=== PATIENT | male | born 1970 | race Caucasian/White ===

== ENCOUNTER 2018-04-12 17:06 | Emergency (ER) | payer MEDICARE, OTHER ==
[~2018-04-12] VITALS: Ht 170.2 cm; Wt 109.1 kg
[2018-04-12 17:24] LABS: GLUCOSE,POINT OF CARE 103 MG/DL (70-110)
[2018-04-12 18:15] LABS: BASOPHILS % (AUTO) 0.5 % (0.0-2.0); EOSINOPHILS % (AUTO) 0.7 % (1.0-6.0); HEMATOCRIT 49.3 % (41-53); LYMPHOCYTES # (AUTO) 2.7 K/uL (1.0-4.8); LYMPHOCYTES % (AUTO) 26.5 % (22.0-44.0); MEAN CORPUSCULAR HEMOGLOBIN 28.6 pg (26.0-34.0); MEAN CORPUSCULAR HGB CONC 34.4 G/dL (31.0-37.0); MEAN CORPUSCULAR VOLUME 83 fL (80-100); MONOCYTES # (AUTO) 0.8 K/uL (0.1-1.0); MONOCYTES % (AUTO) 7.3 % (2.0-9.0); NEUTROPHILS # (AUTO) 6.7 K/uL (1.8-7.7); PLATELET COUNT (AUTO) 251 K/uL (150-450); RED BLOOD CELL COUNT(AUTO) 5.92 MIL/uL (4.50-5.90); RED CELL DISTRIBUTION WIDTH 14.1 % (11.5-14.5)
[2018-04-12 18:21] LABS: ANION GAP 12 mmol/L (8-16); CALCIUM, TOTAL 9.5 mg/dL (8.8-10.5); CARBON DIOXIDE 27 mmol/L (22-29); CHLORIDE 104 mmol/L (98-107); CREATININE 1.03 mg/dL (0.60-1.30); GLOMERULAR FILTR. RATE CALC > 60 mL/min (>60); GLUCOSE,RANDOM 106 mg/dL (70-110); POTASSIUM 3.7 mmol/L (3.5-5.1); SODIUM SERUM 143 mmol/L (136-145); UREA NITROGEN, BLOOD 10 mg/dL (7-18)
[2018-04-12 18:26] LABS: ALANINE AMINOTRANSFERASE 107 U/L (12-78); ALBUMIN 3.8 g/dL (3.4-5.0); ALKALINE PHOSPHATASE 103 U/L (46-116); ASPARTATE AMINOTRANSFERASE 47 U/L (15-37); BILIRUBIN,TOTAL 0.4 mg/dL (0.1-1.0); LIPASE 238 U/L (73-393); TOTAL PROTEIN, SERUM 7.8 g/dL (6.4-8.2)
[2018-04-12] MEDS ORDERED: SODIUM CHLORIDE 0.9% 1,000 ML IV ONE (19:00)
[2018-04-12] MEDS ORDERED: FAMOTIDINE 10 MG/ML 2 ML VIAL IVP ONE (19:15)
[2018-04-12] MEDS ORDERED: ONDANSETRON HCL 4 MG/2 ML VIAL IVP ONE (19:15)
[2018-04-12 20:28] LABS: APPEARANCE,URINE CLOUDY (CLEAR); GLUCOSE, URINE (UA) NEGATIVE (NEGATIVE); KETONES,URINE TRACE mg/dL (NEGATIVE); LEUKOCYTE ESTERASE ,URINE NEGATIVE (NEGATIVE); NITRATE,URINE NEGATIVE (NEGATIVE); OCCULT BLOOD,URINE NEGATIVE (NEGATIVE); PH,URINE 5.5 (5.0-8.0); PROTEIN,URINE SEE CONFIRM (NEGATIVE)
[2018-04-12 20:33] LABS: BILIRUBIN,URINE PRELIM. POSITIVE (NEGATIVE)
[2018-04-12 20:43] LABS: AMPHET/METH SCREEN,URINE NEGATIVE (NEGATIVE); BARBITURATE SCREEN, URINE NEGATIVE (NEGATIVE); BENZODIAZEPINES SCREEN,URINE NEGATIVE (NEGATIVE); CANNABINOID SCREEN,URINE NEGATIVE (NEGATIVE); COCAINE SCREEN,URINE NEGATIVE (NEGATIVE); METHADONE SCREEN, URINE NEGATIVE (NEGATIVE); OPIATE SCREEN,URINE NEGATIVE (NEGATIVE)
[2018-04-12 20:44] LABS: PHENCYCLIDINE SCREEN,URINE NEGATIVE (NEGATIVE); SULFOSALICYLIC ACID,URINE 1+ (Negative)
[2018-04-12 20:54] LABS: RBC,URINE 0-2 /HPF (0-2)
[2018-04-12 20:55] LABS: BACTERIA,URINE Few /HPF (None Seen); MUCUS,URINE Many LPF (None Seen); SQUAMOUS EPITHELIAL CELL,UR Few /LPF (None Seen)
[2018-04-12 21:00] VITALS: BP 121/75
[2018-04-12] MEDS ORDERED: LOPERAMIDE HCL 2 MG CAPSULE PO ONE (21:15)
== END 2018-04-12 21:32 | disposition home or self-care (01) ==
LOC: EMS 17:08
DX: R10.13 Epigastric pain (principal); R11.2 Nausea with vomiting, unspecified; R19.7 Diarrhea, unspecified; E11.9 Type 2 diabetes mellitus without complications; F20.9 Schizophrenia, unspecified; Z88.0 Allergy status to penicillin
CPT/HCPCS: 36415; 80053; 80307; 81001; 82962; 83690; 85025; 93005; 96361; 96374; 96375; 99285; G0480; J2405; J3490; J7030

== ENCOUNTER 2018-04-22 20:19 | Inpatient (IN) | payer MEDICARE, MEDICAID ==
[~2018-04-22] VITALS: Ht 172.7 cm; Wt 92.7 kg
[2018-04-22] MEDS ORDERED: ANTIPSYCHOTIC PO (20:44)
[2018-04-22 21:23] LABS: ANION GAP 13 mmol/L (8-16); CALCIUM, TOTAL 9.2 mg/dL (8.8-10.5); CARBON DIOXIDE 25 mmol/L (22-29); CHLORIDE 102 mmol/L (98-107); CREATININE 0.99 mg/dL (0.60-1.30); GLOMERULAR FILTR. RATE CALC > 60 mL/min (>60); GLUCOSE,RANDOM 94 mg/dL (70-110); SODIUM SERUM 140 mmol/L (136-145); UREA NITROGEN, BLOOD 13 mg/dL (7-18)
[2018-04-22 21:29] LABS: ALANINE AMINOTRANSFERASE 96 U/L (12-78); ALBUMIN 3.6 g/dL (3.4-5.0); ALKALINE PHOSPHATASE 100 U/L (46-116); ASPARTATE AMINOTRANSFERASE 41 U/L (15-37); BILIRUBIN,TOTAL 1.2 mg/dL (0.1-1.0); TOTAL PROTEIN, SERUM 7.6 g/dL (6.4-8.2)
[2018-04-22 21:39] LABS: BASOPHILS % (AUTO) 0.4 % (0.0-2.0); EOSINOPHILS % (AUTO) 0.6 % (1.0-6.0); HEMATOCRIT 45.9 % (41-53); HEMOGLOBIN 15.5 g/dL (13.5-17.5); LYMPHOCYTES # (AUTO) 1.8 K/uL (1.0-4.8); LYMPHOCYTES % (AUTO) 15.1 % (22.0-44.0); MEAN CORPUSCULAR HEMOGLOBIN 28.7 pg (26.0-34.0); MEAN CORPUSCULAR HGB CONC 33.7 G/dL (31.0-37.0); MEAN CORPUSCULAR VOLUME 85 fL (80-100); MONOCYTES % (AUTO) 8.1 % (2.0-9.0); NEUTROPHILS # (AUTO) 9.3 K/uL (1.8-7.7); NEUTROPHILS % (AUTO) 75.8 % (40.0-70.0); PLATELET COUNT (AUTO) 258 K/uL (150-450); RED CELL DISTRIBUTION WIDTH 14.6 % (11.5-14.5)
[2018-04-23] MEDS: LORazepam 2 MG TABLET PO PRN ×2 (03:20→09:54)
[2018-04-23] MEDS: HALOPERIDOL 5 MG TABLET PO PRN ×2 (03:21→09:54)
[2018-04-23 04:00] VITALS: BP 128/91
[2018-04-23] MEDS ORDERED: PNEUMOCOCCAL VACCINE POLYVALENT 0.5 ML VIAL [PPSV23] IM ONE (04:00)
[2018-04-23] MEDS ORDERED: CloNIDine HCL 0.1 MG TABLET PO PRN (06:30)
[2018-04-23] MEDS ORDERED: DOCUSATE SODIUM 100 MG CAPSULE PO PRN (06:30)
[2018-04-23] MEDS ORDERED: NICOTINE 14 MG/24 HOUR PATCH TD PRN (06:30)
[2018-04-23] MEDS ORDERED: ALBUTEROL SULFATE HFA 90 MCG/PUFF 8 GM INHALER IH PRN (06:30)
[2018-04-23] MEDS ORDERED: PETROLATUM,WHITE 71 GM JELLY TP PRN (06:30)
[2018-04-23] MEDS ORDERED: MAGNESIUM HYDROXIDE SUSPENSION 30 ML UDCUP PO PRN (06:30)
[2018-04-23] MEDS ORDERED: MAG HYDROX/AL HYDROX/SIMETH ES 30 ML SUSPENSION UDCUP PO PRN (06:30)
[2018-04-23] MEDS ORDERED: ONDANSETRON HCL 4 MG TABLET PO PRN (06:30)
[2018-04-23] MEDS ORDERED: GuaiFENesin/D-METHORPHAN [SUGAR-FREE] 200-20MG/10 ML SYRUP UDCUP PO PRN (06:30)
[2018-04-23 08:00] VITALS: BP 144/93
[2018-04-23] MEDS: ACETAMINOPHEN 325 MG TABLET PO PRN (16:42)
[2018-04-23 16:43] VITALS: BP 130/89
[2018-04-23] MEDS ORDERED: PALIPERIDONE 6 MG ER TABLET PO SCH (21:00)
[2018-04-24 06:52] LABS: ALANINE AMINOTRANSFERASE 65 U/L (12-78); ALKALINE PHOSPHATASE 81 U/L (46-116); ANION GAP 6 mmol/L (8-16); ASPARTATE AMINOTRANSFERASE 25 U/L (15-37); BILIRUBIN,TOTAL 0.5 mg/dL (0.1-1.0); CALCIUM, TOTAL 8.7 mg/dL (8.8-10.5); CARBON DIOXIDE 28 mmol/L (22-29); CHLORIDE 108 mmol/L (98-107); CHOL/HDL RATIO 4.5 (4.2-7.3); CHOLESTEROL 159 mg/dL (131-200); CREATININE 0.78 mg/dL (0.60-1.30); GLOMERULAR FILTR. RATE CALC > 60 mL/min (>60); GLUCOSE,RANDOM 126 mg/dL (70-110); HDL CHOLESTEROL 35 mg/dL (40-60); LDL CHOL (CALC.) 100 mg/dL (0-130); POTASSIUM 3.6 mmol/L (3.5-5.1); SODIUM SERUM 142 mmol/L (136-145); TOTAL PROTEIN, SERUM 6.5 g/dL (6.4-8.2); TRIGLYCERIDES 118 mg/dL (15-150); UREA NITROGEN, BLOOD 13 mg/dL (7-18)
[2018-04-24 08:09] LABS: HEMOGLOBIN A1C 5.5 % (4.5-6.2)
[2018-04-24 09:41] VITALS: BP 106/70
[2018-04-24 17:15] LABS: BASOPHILS % (AUTO) 0.4 % (0.0-2.0); EOSINOPHILS % (AUTO) 1.1 % (1.0-6.0); HEMATOCRIT 43.5 % (41-53); HEMOGLOBIN 14.7 g/dL (13.5-17.5); LYMPHOCYTES # (AUTO) 2.2 K/uL (1.0-4.8); LYMPHOCYTES % (AUTO) 21.6 % (22.0-44.0); MEAN CORPUSCULAR HEMOGLOBIN 29.1 pg (26.0-34.0); MEAN CORPUSCULAR HGB CONC 33.8 G/dL (31.0-37.0); MEAN CORPUSCULAR VOLUME 86 fL (80-100); MONOCYTES # (AUTO) 0.8 K/uL (0.1-1.0); MONOCYTES % (AUTO) 7.5 % (2.0-9.0); NEUTROPHILS # (AUTO) 7.2 K/uL (1.8-7.7); NEUTROPHILS % (AUTO) 69.4 % (40.0-70.0); PLATELET COUNT (AUTO) 231 K/uL (150-450); RED BLOOD CELL COUNT(AUTO) 5.04 MIL/uL (4.50-5.90); RED CELL DISTRIBUTION WIDTH 14.7 % (11.5-14.5)
[2018-04-24 17:45] LABS: APPEARANCE,URINE CLEAR (CLEAR); BILIRUBIN,URINE NEGATIVE (NEGATIVE); GLUCOSE, URINE (UA) NEGATIVE (NEGATIVE); KETONES,URINE NEGATIVE (NEGATIVE); LEUKOCYTE ESTERASE ,URINE NEGATIVE (NEGATIVE); NITRATE,URINE NEGATIVE (NEGATIVE); OCCULT BLOOD,URINE TRACE (NEGATIVE); PH,URINE 6.5 (5.0-8.0); PROTEIN,URINE NEGATIVE (NEGATIVE); UROBILINOGEN,URINE 0.2 mg/dL (<=1.0)
[2018-04-24 17:50] LABS: AMPHET/METH SCREEN,URINE NEGATIVE (NEGATIVE); BARBITURATE SCREEN, URINE NEGATIVE (NEGATIVE); BENZODIAZEPINES SCREEN,URINE NEGATIVE (NEGATIVE); CANNABINOID SCREEN,URINE NEGATIVE (NEGATIVE); COCAINE SCREEN,URINE NEGATIVE (NEGATIVE); METHADONE SCREEN, URINE NEGATIVE (NEGATIVE); OPIATE SCREEN,URINE NEGATIVE (NEGATIVE)
[2018-04-24 17:54] LABS: PHENCYCLIDINE SCREEN,URINE NEGATIVE (NEGATIVE)
[2018-04-24 18:12] LABS: BACTERIA,URINE None Seen /HPF (None Seen); RBC,URINE 0-2 /HPF (0-2); SQUAMOUS EPITHELIAL CELL,UR Rare /LPF (None Seen); WBC,URINE None Seen /HPF (0-5)
[2018-04-24 18:18] VITALS: BP 120/79
[2018-04-24] MEDS ORDERED: PALIPERIDONE 6 MG ER TABLET PO SCH (21:00)
[2018-04-25 00:25] VITALS: BP 113/73
[2018-04-25] MEDS: LORazepam 2 MG TABLET PO PRN ×2 (00:33→08:32)
[2018-04-25] MEDS: ZOLPIDEM TARTRATE 10 MG TABLET PO PRN (00:33)
[2018-04-25 08:19] VITALS: BP 125/91
[2018-04-25] MEDS: HALOPERIDOL 5 MG TABLET PO PRN (11:34)
[2018-04-25 18:38] VITALS: BP 151/88
[2018-04-25] MEDS: PALIPERIDONE 6 MG ER TABLET PO SCH (20:24)
[2018-04-25] MEDS ORDERED: PALIPERIDONE 3 MG ER TABLET PO SCH (21:00)
[2018-04-26] MEDS: LOPERAMIDE HCL 2 MG CAPSULE PO PRN (08:31)
[2018-04-26] MEDS: LORazepam 2 MG TABLET PO PRN (08:31)
[2018-04-26] MEDS: ACETAMINOPHEN 325 MG TABLET PO PRN (12:49)
[2018-04-26 17:23] VITALS: BP 141/82
[2018-04-26] MEDS: PALIPERIDONE 6 MG ER TABLET PO SCH (19:50)
[2018-04-27 08:51] VITALS: BP 134/79
[2018-04-27] MEDS: LORazepam 2 MG TABLET PO PRN (08:53)
[2018-04-27] MEDS: HALOPERIDOL 5 MG TABLET PO PRN (08:53)
[2018-04-27] MEDS: IBUPROFEN 400 MG TABLET PO PRN (08:54)
[2018-04-27] MEDS: LOPERAMIDE HCL 2 MG CAPSULE PO PRN (08:54)
[2018-04-27] MEDS: ACETAMINOPHEN 325 MG TABLET PO PRN (08:54)
[2018-04-27 19:19] VITALS: BP 107/68
[2018-04-27] MEDS: PALIPERIDONE 6 MG ER TABLET PO SCH (20:00)
[2018-04-28 00:50] VITALS: BP 135/75
[2018-04-28] MEDS: LORazepam 2 MG TABLET PO PRN (00:55)
[2018-04-28] MEDS: ZOLPIDEM TARTRATE 10 MG TABLET PO PRN (00:55)
[2018-04-28 08:59] VITALS: BP 139/91
[2018-04-28] MEDS: IBUPROFEN 400 MG TABLET PO PRN (11:12)
[2018-04-28 17:00] VITALS: BP 132/85
[2018-04-28] MEDS: PALIPERIDONE 6 MG ER TABLET PO SCH (20:16)
[2018-04-29 04:05] VITALS: BP 101/74
[2018-04-29] MEDS: LORazepam 2 MG TABLET PO PRN (04:11)
[2018-04-29] MEDS: HALOPERIDOL 5 MG TABLET PO PRN (04:11)
[2018-04-29 09:14] VITALS: BP 115/85
[2018-04-29 17:00] VITALS: BP 149/80
[2018-04-29] MEDS: PALIPERIDONE 6 MG ER TABLET PO SCH (20:49)
[2018-04-30 08:25] VITALS: BP 122/79
[2018-04-30 16:01] VITALS: BP 133/68
[2018-04-30] MEDS: ACETAMINOPHEN 325 MG TABLET PO PRN (17:22)
[2018-04-30] MEDS: PALIPERIDONE 6 MG ER TABLET PO SCH (20:23)
[2018-05-01 02:56] VITALS: BP 116/96
[2018-05-01] MEDS: HALOPERIDOL 5 MG TABLET PO PRN ×2 (02:56→08:12)
[2018-05-01] MEDS: IBUPROFEN 400 MG TABLET PO PRN (02:57)
[2018-05-01 08:00] VITALS: BP 112/64
[2018-05-01 17:12] VITALS: BP 132/83
[2018-05-01] MEDS: PALIPERIDONE 6 MG ER TABLET PO SCH (20:21)
[2018-05-02 08:02] VITALS: BP 140/91
[2018-05-02] MEDS: HALOPERIDOL 5 MG TABLET PO PRN (08:05)
[2018-05-02 17:00] VITALS: BP 119/72
[2018-05-02] MEDS: PALIPERIDONE 6 MG ER TABLET PO SCH (20:39)
[2018-05-02] MEDS: ZOLPIDEM TARTRATE 10 MG TABLET PO PRN (22:24)
[2018-05-03 00:03] VITALS: BP 123/89
[2018-05-03] MEDS: LORazepam 2 MG TABLET PO PRN (00:06)
[2018-05-03] MEDS: HALOPERIDOL 5 MG TABLET PO PRN ×2 (03:01→22:02)
[2018-05-03 08:05] VITALS: BP 142/95
[2018-05-03] MEDS: DIVALPROEX SODIUM 500 MG ER TABLET PO SCH ×2 (08:16→16:31)
[2018-05-03 17:00] VITALS: BP 116/84
[2018-05-03] MEDS: PALIPERIDONE 6 MG ER TABLET PO SCH (23:01)
[2018-05-04] MEDS: ACETAMINOPHEN 325 MG TABLET PO PRN (00:04)
[2018-05-04 00:26] VITALS: BP 135/92
[2018-05-04] MEDS: HALOPERIDOL 5 MG TABLET PO PRN ×2 (03:08→08:44)
[2018-05-04 08:07] VITALS: BP 160/101
[2018-05-04] MEDS: DIVALPROEX SODIUM 500 MG ER TABLET PO SCH ×2 (08:44→16:56)
[2018-05-04 16:29] VITALS: BP 145/97
[2018-05-04] MEDS: PALIPERIDONE 6 MG ER TABLET PO SCH (21:00)
[2018-05-05 01:15] VITALS: BP 147/90
[2018-05-05] MEDS: DIVALPROEX SODIUM 500 MG ER TABLET PO SCH ×3 (09:00→16:14)
[2018-05-05] MEDS: HALOPERIDOL 5 MG TABLET PO PRN (13:43)
[2018-05-05 16:21] VITALS: BP 131/89
[2018-05-05] MEDS: PALIPERIDONE 6 MG ER TABLET PO SCH (20:01)
[2018-05-06] MEDS: HALOPERIDOL 5 MG TABLET PO PRN ×2 (02:44→12:40)
[2018-05-06 02:55] VITALS: BP 122/82
[2018-05-06] MEDS: IBUPROFEN 400 MG TABLET PO PRN ×2 (02:58→12:41)
[2018-05-06 05:36] LABS: BASOPHILS % (AUTO) 0.3 % (0.0-2.0); EOSINOPHILS % (AUTO) 0.8 % (1.0-6.0); HEMATOCRIT 43.5 % (41-53); HEMOGLOBIN 14.5 g/dL (13.5-17.5); LYMPHOCYTES % (AUTO) 29.1 % (22.0-44.0); MEAN CORPUSCULAR HEMOGLOBIN 28.9 pg (26.0-34.0); MEAN CORPUSCULAR HGB CONC 33.4 G/dL (31.0-37.0); MEAN CORPUSCULAR VOLUME 87 fL (80-100); MONOCYTES % (AUTO) 9.6 % (2.0-9.0); NEUTROPHILS # (AUTO) 6.1 K/uL (1.8-7.7); NEUTROPHILS % (AUTO) 60.2 % (40.0-70.0); PLATELET COUNT (AUTO) 258 K/uL (150-450); RED BLOOD CELL COUNT(AUTO) 5.02 MIL/uL (4.50-5.90); RED CELL DISTRIBUTION WIDTH 14.8 % (11.5-14.5)
[2018-05-06] MEDS: DIVALPROEX SODIUM 500 MG ER TABLET PO SCH ×2 (08:33→16:20)
[2018-05-06 12:40] VITALS: BP 109/60
[2018-05-06 19:23] VITALS: BP 110/74
[2018-05-06] MEDS: PALIPERIDONE 6 MG ER TABLET PO SCH (20:04)
[2018-05-07] MEDS ORDERED: PALIPERIDONE PALMITATE 234 MG/1.5 ML SYRINGE IM ONE (09:00)
[2018-05-07] MEDS: DIVALPROEX SODIUM 500 MG ER TABLET PO SCH ×2 (09:00→16:07)
[2018-05-07 09:13] VITALS: BP 116/82
[2018-05-07] MEDS: PALIPERIDONE 6 MG ER TABLET PO SCH (20:21)
[2018-05-08] MEDS: DIVALPROEX SODIUM 500 MG ER TABLET PO SCH ×2 (08:29→16:53)
[2018-05-08 09:19] VITALS: BP_SYST 128; BP_SYST 200; BP_DIAS 80; BP_DIAS 89
[2018-05-08 17:00] VITALS: BP 122/80
[2018-05-08] MEDS: PALIPERIDONE 6 MG ER TABLET PO SCH (20:14)
[2018-05-09 03:28] VITALS: BP 114/85
[2018-05-09] MEDS: DIVALPROEX SODIUM 500 MG ER TABLET PO SCH ×2 (08:22→16:28)
[2018-05-09 09:35] VITALS: BP 133/78
[2018-05-09] MEDS: PALIPERIDONE 6 MG ER TABLET PO SCH (20:12)
[2018-05-09 22:09] VITALS: BP 129/80
[2018-05-10] MEDS: DIVALPROEX SODIUM 500 MG ER TABLET PO SCH (08:41)
[2018-05-10 09:31] VITALS: BP 142/92
[2018-05-10] MEDS ORDERED: DIVA500T52 PO (10:32)
[2018-05-10] MEDS ORDERED: PALI6 PO (10:33)
== END 2018-05-10 14:40 | disposition home or self-care (01) | DRG 885 ==
LOC: EMS 20:20 → 3EX 04-23 02:05
PROVIDERS: ADMIT Psychiatry & Neurology Psychiatry; ATTEND Psychiatry & Neurology Psychiatry
DX: F20.0 Paranoid schizophrenia (principal); R45.851 Suicidal ideations; K59.00 Constipation, unspecified; E11.9 Type 2 diabetes mellitus without complications; R00.0 Tachycardia, unspecified; H92.09 Otalgia, unspecified ear; D72.829 Elevated white blood cell count, unspecified; Z91.5 Personal history of self-harm; Z91.19 Patient's noncompliance with other medical treatment and regimen; Z88.0 Allergy status to penicillin
CPT/HCPCS: 70450; 70486; 80307; 83036; 84443; G0378; G0480; Q0162

== ENCOUNTER 2018-12-18 09:08 | Emergency (ER) | payer MEDICARE, OTHER ==
[~2018-12-18] VITALS: Ht 182.9 cm; Wt 109.1 kg
[~2018-12-18 09:08] MED LIST: AMLO-511 PO; BENZ1TAB10 PO; CITA10TA68 PO; CLON1 PO; CLOZ100T31 PO; DIVA500T52 PO; DOCU250C91 PO; FLUP5 PO; GABA-531 PO; GEMF600T5 PO; HYDR25TA PO; OMEP20CA4 PO; OXYB5 PO; PALI6 PO; PROM6.2522 PO; RISPC50 IM; TRAM50TA4 PO; TRAZ-220 PO
[2018-12-18 09:34] LABS: GLUCOSE,POINT OF CARE 138 MG/DL (70-110)
[2018-12-18 09:59] LABS: BASOPHILS % (AUTO) 0.4 % (0.0-2.0); EOSINOPHILS % (AUTO) 0.1 % (1.0-6.0); HEMATOCRIT 42.3 % (41-53); HEMOGLOBIN 14.1 g/dL (13.5-17.5); LYMPHOCYTES # (AUTO) 1.7 K/uL (1.0-4.8); MEAN CORPUSCULAR HEMOGLOBIN 28.9 pg (26.0-34.0); MEAN CORPUSCULAR HGB CONC 33.3 G/dL (31.0-37.0); MEAN CORPUSCULAR VOLUME 87 fL (80-100); MONOCYTES # (AUTO) 0.8 K/uL (0.1-1.0); MONOCYTES % (AUTO) 7.8 % (2.0-9.0); NEUTROPHILS # (AUTO) 7.6 K/uL (1.8-7.7); NEUTROPHILS % (AUTO) 74.7 % (40.0-70.0); PLATELET COUNT (AUTO) 230 K/uL (150-450); RED BLOOD CELL COUNT(AUTO) 4.88 MIL/uL (4.50-5.90); RED CELL DISTRIBUTION WIDTH 13.3 % (11.5-14.5)
[2018-12-18] MEDS ORDERED: LevETIRAcetam 1,000 MG in DEXTROSE 5%-WATER 100 ML IV ONE (10:00)
[2018-12-18] MEDS ORDERED: LORazepam 2 MG/ML VIAL IVP ONE (10:00)
[2018-12-18 10:18] LABS: ANION GAP 11 mmol/L (8-16); CARBON DIOXIDE 27 mmol/L (22-29); CHLORIDE 102 mmol/L (98-107); CREATININE 0.92 mg/dL (0.60-1.30); GLOMERULAR FILTR. RATE CALC > 60 mL/min (>60); GLUCOSE,RANDOM 138 mg/dL (70-110); POTASSIUM 3.8 mmol/L (3.5-5.1); SODIUM SERUM 140 mmol/L (136-145); UREA NITROGEN, BLOOD 20 mg/dL (7-18)
[2018-12-18 10:24] LABS: ALANINE AMINOTRANSFERASE 139 U/L (12-78); ALBUMIN 3.5 g/dL (3.4-5.0); ALKALINE PHOSPHATASE 109 U/L (46-116); ASPARTATE AMINOTRANSFERASE 114 U/L (15-37); BILIRUBIN,TOTAL 0.7 mg/dL (0.1-1.0); TOTAL PROTEIN, SERUM 6.9 g/dL (6.4-8.2)
[2018-12-18 10:26] LABS: VALPROIC ACID < 3 mcg/mL (50-100)
[2018-12-18] MEDS ORDERED: DIVALPROEX SODIUM 500 MG ER TABLET PO ONE (11:30)
[2018-12-18 12:10] VITALS: BP 141/82
== END 2018-12-18 12:40 | disposition home or self-care (01) ==
LOC: EMS 09:10
DX: G40.909 Epilepsy, unspecified, not intractable, without status epilepticus (principal); F15.10 Other stimulant abuse, uncomplicated; R79.89 Other specified abnormal findings of blood chemistry; F17.210 Nicotine dependence, cigarettes, uncomplicated; E11.9 Type 2 diabetes mellitus without complications; F20.9 Schizophrenia, unspecified; G89.29 Other chronic pain; Z88.0 Allergy status to penicillin
CPT/HCPCS: 36415; 70450; 71045; 72125; 80053; 80164; 82962; 84484; 85025; 93005; 96365; 96375; 99285; 99406; G0480; J0712; J2060; J7060

== ENCOUNTER 2022-05-24 18:32 | Emergency (ER) | payer MEDICARE, OTHER ==
[~2022-05-24] VITALS: Ht 170.2 cm; Wt 113.6 kg
[~2022-05-24 18:32] MED LIST changes: +AMLO-257 PO; -AMLO-511 PO; -BENZ1TAB10 PO; +BENZ1TAB96 PO; -CITA10TA68 PO; +CITA10TA99 PO; +CLON-595 PO; -CLON1 PO; +CLOZ100T11 PO; -CLOZ100T31 PO; +DOCU-350 PO; -DOCU250C91 PO; -FLUP5 PO; +FLUP5TAB31 PO; +GABA-1181 PO; -GABA-531 PO; +GEMF-77 PO; -GEMF600T5 PO; -HYDR25TA PO; +HYDR25TA2 PO; -OXYB5 PO; +OXYB5TAB20 PO; -PALI6 PO; +PALI6TAB15 PO; +PROM5L PO; -PROM6.2522 PO; +TRAM-559 PO; -TRAM50TA4 PO; -TRAZ-220 PO; +TRAZ-257 PO
[2022-05-24] MEDS ORDERED: DiphenhydrAMINE HCL 50 MG/ML VIAL IM ONE (19:15)
[2022-05-24] MEDS ORDERED: LORazepam 1 MG TABLET PO ONE ×2 (19:15→20:45)
[2022-05-24] MEDS ORDERED: CLOB15CR10 TP (20:44)
[2022-05-24] MEDS ORDERED: HYDR50CA7 PO (20:44)
[2022-05-24] MEDS ORDERED: KETOROLAC TROMETHAMINE 60 MG/2 ML VIAL IM ONE (20:45)
[2022-05-24] MEDS ORDERED: HydrOXYzine PAMOATE 50 MG CAPSULE PO ONE (20:45)
[2022-05-24 21:00] VITALS: BP 124/83
== END 2022-05-24 21:07 | disposition home or self-care (01) ==
LOC: EMS 18:32
DX: L20.9 Atopic dermatitis, unspecified (principal); F15.10 Other stimulant abuse, uncomplicated; E11.9 Type 2 diabetes mellitus without complications; F20.9 Schizophrenia, unspecified; G89.4 Chronic pain syndrome; M19.90 Unspecified osteoarthritis, unspecified site; Z88.0 Allergy status to penicillin
CPT/HCPCS: 99284; 96372; J1200; J1885

== ENCOUNTER 2022-06-13 20:44 | Emergency (ER) | payer MEDICARE, OTHER ==
[~2022-06-13] VITALS: Ht 170.2 cm; Wt 111.4 kg
[~2022-06-13 20:44] MED LIST changes: +CLOB15CR10 TP; +HYDR50CA7 PO
[2022-06-13 22:28] VITALS: BP 159/95
[2022-06-13 22:43] LABS: BASOPHILS % (AUTO) 0.5 % (0.0-2.0); EOSINOPHILS % (AUTO) 0.7 % (1.0-6.0); HEMATOCRIT 44.4 % (41-53); HEMOGLOBIN 14.7 g/dL (13.5-17.5); LYMPHOCYTES # (AUTO) 2.2 K/uL (1.0-4.8); MEAN CORPUSCULAR HEMOGLOBIN 29.2 pg (26.0-34.0); MEAN CORPUSCULAR HGB CONC 33.1 G/dL (31.0-37.0); MEAN CORPUSCULAR VOLUME 88 fL (80-100); MONOCYTES # (AUTO) 0.7 K/uL (0.1-1.0); MONOCYTES % (AUTO) 8.6 % (2.0-9.0); NEUTROPHILS # (AUTO) 5.2 K/uL (1.8-7.7); NEUTROPHILS % (AUTO) 63.2 % (40.0-70.0); PLATELET COUNT (AUTO) 231 K/uL (150-450); RED BLOOD CELL COUNT(AUTO) 5.04 MIL/uL (4.50-5.90); RED CELL DISTRIBUTION WIDTH 13.3 % (11.5-14.5)
[2022-06-13 23:06] LABS: ANION GAP 1 mmol/L (8-16); CALCIUM, TOTAL 9.4 mg/dL (8.8-10.5); CARBON DIOXIDE 31 mmol/L (22-29); CHLORIDE 100 mmol/L (98-107); CREATININE 0.98 mg/dL (0.60-1.30); GLUCOSE,RANDOM 246 mg/dL (70-110); POTASSIUM 4.8 mmol/L (3.5-5.1); SODIUM SERUM 132 mmol/L (136-145); UREA NITROGEN, BLOOD 19 mg/dL (7-18)
[2022-06-13 23:08] LABS: GLOMERULAR FILTR. RATE CALC > 60 mL/min (>60)
[2022-06-13 23:12] LABS: ALANINE AMINOTRANSFERASE 121 U/L (12-78); ALBUMIN 3.6 g/dL (3.4-5.0); ALKALINE PHOSPHATASE 112 U/L (46-116); ASPARTATE AMINOTRANSFERASE 69 U/L (15-37); BILIRUBIN,TOTAL 0.4 mg/dL (0.1-1.0)
[2022-06-13 23:45] LABS: ERYTHROCYTE SEDIMENTATION RATE 14 MM/HR (0-15)
== END 2022-06-13 23:59 | disposition home or self-care (01) ==
LOC: EMS 20:45
DX: R21 Rash and other nonspecific skin eruption (principal); E11.9 Type 2 diabetes mellitus without complications; F20.9 Schizophrenia, unspecified; M19.90 Unspecified osteoarthritis, unspecified site; Z86.19 Personal history of other infectious and parasitic diseases
CPT/HCPCS: 80053; 85025; 85651; 99283

== ENCOUNTER 2022-07-03 00:31 | Emergency (ER) | payer MEDICARE, OTHER ==
[~2022-07-03] VITALS: Ht 170.2 cm; Wt 60.0 kg
[2022-07-03] MEDS ORDERED: PERMETHRIN 5% 60 GM CREAM TP ONE (01:00)
[2022-07-03] MEDS ORDERED: DiphenhydrAMINE HCL 25 MG CAPSULE PO ONE (01:00)
[2022-07-03] MEDS ORDERED: HYDR30CR3 TP (01:12)
[2022-07-03 01:28] VITALS: BP 165/93
[2022-07-03 02:01] LABS: GLUCOMETER DEV NAME(LOC) ERT.5; GLUCOSE,POINT OF CARE 201 MG/DL (70-110)
== END 2022-07-03 01:43 | disposition home or self-care (01) ==
LOC: EMS 00:32
DX: B86 Scabies (principal); E11.9 Type 2 diabetes mellitus without complications; F20.9 Schizophrenia, unspecified; M19.90 Unspecified osteoarthritis, unspecified site; Z86.19 Personal history of other infectious and parasitic diseases; Z88.0 Allergy status to penicillin
CPT/HCPCS: 82962; 99283

== ENCOUNTER 2022-07-06 19:29 | Emergency (ER) | payer MEDICARE, OTHER ==
[~2022-07-06] VITALS: Ht 170.2 cm; Wt 111.4 kg
[~2022-07-06 19:29] MED LIST changes: +HYDR30CR3 TP
[2022-07-06 21:47] VITALS: BP 154/98
[2022-07-06] MEDS ORDERED: PERM60CR19 TP (22:18)
[2022-07-06] MEDS ORDERED: HYDR-3831 PO (22:18)
[2022-07-06] MEDS ORDERED: METH4TAB3 PO (22:18)
[2022-07-06] MEDS: HydrOXYzine HCL 25 MG TABLET PO ONE (22:43)
== END 2022-07-07 02:12 | disposition home or self-care (01) ==
LOC: EMS 20:37
DX: R21 Rash and other nonspecific skin eruption (principal); B86 Scabies; Z88.0 Allergy status to penicillin
CPT/HCPCS: 99283

== ENCOUNTER 2022-08-11 10:21 | Inpatient (IN) | payer MEDICARE, OTHER ==
[~2022-08-11] VITALS: Ht 170.2 cm; Wt 99.0 kg
[~2022-08-11 10:21] MED LIST changes: +HYDR-3831 PO; +METH4TAB3 PO; +PERM60CR19 TP
[2022-08-11] MEDS ORDERED: IOHEXOL 350 MG/ML 100 ML VIAL ONE (10:58)
[2022-08-11] MEDS ORDERED: SODIUM CHLORIDE 0.9% 100 ML ONE (10:58)
[2022-08-11 11:06] LABS: BASOPHILS % (AUTO) 0.5 % (0.0-2.0); EOSINOPHILS % (AUTO) 2.1 % (1.0-6.0); HEMATOCRIT 39.1 % (41-53); HEMOGLOBIN 13.1 g/dL (13.5-17.5); LYMPHOCYTES # (AUTO) 2.1 K/uL (1.0-4.8); LYMPHOCYTES % (AUTO) 29.9 % (22.0-44.0); MEAN CORPUSCULAR HEMOGLOBIN 29.3 pg (26.0-34.0); MEAN CORPUSCULAR HGB CONC 33.5 G/dL (31.0-37.0); MEAN CORPUSCULAR VOLUME 88 fL (80-100); MONOCYTES # (AUTO) 0.6 K/uL (0.1-1.0); MONOCYTES % (AUTO) 8.9 % (2.0-9.0); NEUTROPHILS % (AUTO) 58.6 % (40.0-70.0); PLATELET COUNT (AUTO) 195 K/uL (150-450); RED BLOOD CELL COUNT(AUTO) 4.47 MIL/uL (4.50-5.90); RED CELL DISTRIBUTION WIDTH 13.6 % (11.5-14.5)
[2022-08-11 11:19] LABS: PROTHROMBIN TIME 11.1 SEC (9.4-11.6)
[2022-08-11 11:26] LABS: ANION GAP 4 mmol/L (8-16); CARBON DIOXIDE 30 mmol/L (22-29); CHLORIDE 100 mmol/L (98-107); CREATININE 0.88 mg/dL (0.60-1.30); GLUCOSE,RANDOM 203 mg/dL (70-110); POTASSIUM 4.7 mmol/L (3.5-5.1); SODIUM SERUM 134 mmol/L (136-145); UREA NITROGEN, BLOOD 12 mg/dL (7-18)
[2022-08-11 11:27] LABS: CALCIUM, TOTAL 8.4 mg/dL (8.8-10.5); GLOMERULAR FILTR. RATE CALC > 60 mL/min (>60)
[2022-08-11 11:31] LABS: ALANINE AMINOTRANSFERASE 48 U/L (12-78); ALBUMIN 2.8 g/dL (3.4-5.0); ALKALINE PHOSPHATASE 78 U/L (46-116); ASPARTATE AMINOTRANSFERASE 28 U/L (15-37); BILIRUBIN,TOTAL 0.5 mg/dL (0.1-1.0); TOTAL PROTEIN, SERUM 6.4 g/dL (6.4-8.2)
[2022-08-11 13:34] LABS: APPEARANCE,URINE CLEAR (CLEAR); BILIRUBIN,URINE NEGATIVE (NEGATIVE); GLUCOSE, URINE (UA) 70-100 mg/dL (NEGATIVE); KETONES,URINE NEGATIVE (NEGATIVE); LEUKOCYTE ESTERASE ,URINE NEGATIVE (NEGATIVE); NITRATE,URINE NEGATIVE (NEGATIVE); OCCULT BLOOD,URINE NEGATIVE (NEGATIVE); PROTEIN,URINE TRACE mg/dL (NEGATIVE)
[2022-08-11 13:43] LABS: AMPHET/METH SCREEN,URINE NEGATIVE (NEGATIVE); BARBITURATE SCREEN, URINE NEGATIVE (NEGATIVE); BENZODIAZEPINES SCREEN,URINE NEGATIVE (NEGATIVE); CANNABINOID SCREEN,URINE NEGATIVE (NEGATIVE); COCAINE SCREEN,URINE NEGATIVE (NEGATIVE); METHADONE SCREEN, URINE NEGATIVE (NEGATIVE); OPIATE SCREEN,URINE NEGATIVE (NEGATIVE)
[2022-08-11 13:46] LABS: BACTERIA,URINE None Seen /HPF (None Seen); PHENCYCLIDINE SCREEN,URINE NEGATIVE (NEGATIVE); RBC,URINE None Seen /HPF (0-2); SQUAMOUS EPITHELIAL CELL,UR Few /LPF (None Seen); WBC,URINE None Seen /HPF (0-5)
[2022-08-11] MEDS ORDERED: BISACODYL 10 MG RECTAL RECTAL SUPPOSITORY PR PRN (14:15)
[2022-08-11] MEDS ORDERED: SODIUM CHLORIDE 0.9% 1,000 ML IV ONE (14:15)
[2022-08-11] MEDS ORDERED: DEXTROSE 50%-WATER 25 GM/50 ML SYRINGE IVP PRN (14:15)
[2022-08-11] MEDS ORDERED: ACETAMINOPHEN 325 MG TABLET PO PRN (14:15)
[2022-08-11] MEDS ORDERED: ONDANSETRON HCL 4 MG/2 ML VIAL IVP PRN (14:15)
[2022-08-11] MEDS: ATORVASTATIN CALCIUM 40 MG TABLET PO SCH (14:22)
[2022-08-11] MEDS: ASPIRIN 81 MG CHEWABLE TABLET PO SCH (14:23)
[2022-08-11 15:07] LABS: COVID AG,FIA SOURCE NASAL SWAB
[2022-08-11] MEDS: HEPARIN SODIUM,PORCINE 5,000 UNITS/ML VIAL SQ SCH ×2 (15:41→23:19)
[2022-08-11 18:31] LABS: GLUCOMETER DEV NAME(LOC) ERT.5; GLUCOSE,POINT OF CARE 160 MG/DL (70-110)
[2022-08-11 20:38] VITALS: BP 165/75
[2022-08-11] MEDS ORDERED: DiphenhydrAMINE/ZINC ACET 30 GM CREAM TP PRN (20:45)
[2022-08-11] MEDS: INSULIN LISPRO 100 UNITS/ML SQ PRN (21:38)
[2022-08-11 23:11] LABS: GLUCOMETER DEV NAME(LOC) 5S.2B; GLUCOSE,POINT OF CARE 224 MG/DL (70-110)
[2022-08-12] MEDS ORDERED: INFLUENZA VIRUS VACCINE QVS 2022-23 (6MO+)/PF 60 MCG/0.5 ML SYRINGE IM. ONE (01:15)
[2022-08-12 06:00] VITALS: BP 125/85
[2022-08-12] MEDS: INSULIN LISPRO 100 UNITS/ML SQ PRN ×3 (06:05→17:26)
[2022-08-12 07:43] VITALS: BP 132/85
[2022-08-12] MEDS ORDERED: FAMOTIDINE 20 MG TABLET PO SCH (09:00)
[2022-08-12] MEDS: HEPARIN SODIUM,PORCINE 5,000 UNITS/ML VIAL SQ SCH ×2 (10:34→16:00)
[2022-08-12] MEDS: ASPIRIN 81 MG CHEWABLE TABLET PO SCH (10:35)
[2022-08-12] MEDS: ATORVASTATIN CALCIUM 40 MG TABLET PO SCH (10:35)
[2022-08-12 11:30] VITALS: BP 152/91
[2022-08-12 13:06] LABS: GLUCOMETER DEV NAME(LOC) 5S.1B; GLUCOSE,POINT OF CARE 233 MG/DL (70-110)
[2022-08-12 15:24] VITALS: BP 159/95
[2022-08-12] MEDS ORDERED: MetFORMIN HCL 500 MG TABLET PO SCH (18:00)
[2022-08-12 20:00] VITALS: BP 159/96
[2022-08-12 20:17] LABS: GLUCOMETER DEV NAME(LOC) 5N.1C; GLUCOSE,POINT OF CARE 270 MG/DL (70-110)
== END 2022-08-12 20:25 | disposition left against medical advice (07) | DRG 65 ==
LOC: EMS 10:22 → AHU 14:31 → 5S 20:05
PROVIDERS: ADMIT Internal Medicine; ATTEND Internal Medicine
DX: I63.9 Cerebral infarction, unspecified (principal); F20.0 Paranoid schizophrenia; G93.49 Other encephalopathy; G89.4 Chronic pain syndrome; M19.90 Unspecified osteoarthritis, unspecified site; E66.9 Obesity, unspecified; E11.65 Type 2 diabetes mellitus with hyperglycemia; I10 Essential (primary) hypertension; R29.810 Facial weakness; Z20.822 Contact with and (suspected) exposure to COVID-19; Z88.0 Allergy status to penicillin; Z79.899 Other long term (current) drug therapy; Z83.3 Family history of diabetes mellitus; Z68.34 Body mass index [BMI] 34.0-34.9, adult; Z91.199 Patient's noncompliance with other medical treatment and regimen due to unspecified reason; G83.21 Monoplegia of upper limb affecting right dominant side; Z53.29 Procedure and treatment not carried out because of patient's decision for other reasons
CPT/HCPCS: 70496; 70498; 70551; 71045; 80053; 80307; 81001; 82948; 82962; 84484; 85025; 85610; 85730; 86850; 86900; 86901; 92610; 93005; 93306; 97110; 97162; 97165; 97535; 99285; G0378; J1644; J7030; J7050; Q9967; 36415-L1; 36415-TC; 70450; 70450-TC

== ENCOUNTER 2023-01-31 09:52 | Emergency (ER) | payer MEDICARE, OTHER ==
[~2023-01-31] VITALS: Ht 170.2 cm; Wt 109.1 kg
[~2023-01-31 09:52] MED LIST changes: +BENZ1TAB84 PO; -BENZ1TAB96 PO
[2023-01-31 12:33] LABS: BASOPHILS % (AUTO) 0.8 % (0.0-2.0); EOSINOPHILS % (AUTO) 4.6 % (1.0-6.0); HEMATOCRIT 44.2 % (41-53); HEMOGLOBIN 14.7 g/dL (13.5-17.5); LYMPHOCYTES # (AUTO) 2.3 K/uL (1.0-4.8); LYMPHOCYTES % (AUTO) 35.2 % (22.0-44.0); MEAN CORPUSCULAR HGB CONC 33.3 G/dL (31.0-37.0); MEAN CORPUSCULAR VOLUME 87 fL (80-100); MONOCYTES # (AUTO) 0.5 K/uL (0.1-1.0); NEUTROPHILS # (AUTO) 3.3 K/uL (1.8-7.7); NEUTROPHILS % (AUTO) 51.4 % (40.0-70.0); PLATELET COUNT (AUTO) 202 K/uL (150-450); RED BLOOD CELL COUNT(AUTO) 5.07 MIL/uL (4.50-5.90); RED CELL DISTRIBUTION WIDTH 13.7 % (11.5-14.5)
[2023-01-31 12:46] LABS: ANION GAP 9 mmol/L (8-16); CALCIUM, TOTAL 9.1 mg/dL (8.8-10.5); CARBON DIOXIDE 27 mmol/L (22-29); CHLORIDE 101 mmol/L (98-107); CREATININE 0.88 mg/dL (0.60-1.30); GLOMERULAR FILTR. RATE CALC > 60 mL/min (>60); GLUCOSE,RANDOM 375 mg/dL (70-110); POTASSIUM 3.7 mmol/L (3.5-5.1); SODIUM SERUM 137 mmol/L (136-145)
[2023-01-31 12:51] LABS: ALANINE AMINOTRANSFERASE 139 U/L (12-78); ALBUMIN 3.6 g/dL (3.4-5.0); ALKALINE PHOSPHATASE 133 U/L (46-116); ASPARTATE AMINOTRANSFERASE 93 U/L (15-37); BILIRUBIN,TOTAL 0.9 mg/dL (0.1-1.0); TOTAL PROTEIN, SERUM 7.9 g/dL (6.4-8.2)
[2023-01-31 12:58] LABS: B-TYPE NATRIURETIC PEPTIDE 7 pg/mL (0-100)
[2023-01-31] MEDS ORDERED: INSULIN REGULAR, HUMAN 100 UNITS/ML IVP ONE (14:00)
[2023-01-31] MEDS ORDERED: SODIUM CHLORIDE 0.9% 1,000 ML IV ONE (14:00)
[2023-01-31 14:31] LABS: GLUCOMETER DEV NAME(LOC) ER.6
[2023-01-31 15:53] LABS: APPEARANCE,URINE CLEAR (CLEAR); BILIRUBIN,URINE NEGATIVE (NEGATIVE); GLUCOSE, URINE (UA) >=1000 mg/dL (NEGATIVE); LEUKOCYTE ESTERASE ,URINE LARGE (NEGATIVE); NITRATE,URINE NEGATIVE (NEGATIVE); OCCULT BLOOD,URINE TRACE (NEGATIVE); PH,URINE 5.5 (5.0-8.0); PROTEIN,URINE TRACE mg/dL (NEGATIVE); SPECIFIC GRAVITIY, URINE 1.043 (1.003-1.030); UROBILINOGEN,URINE <=1.0 mg/dL (<=1.0)
[2023-01-31 15:56] LABS: GLUCOMETER DEV NAME(LOC) ERT.5
[2023-01-31 15:57] LABS: AMPHET/METH SCREEN,URINE NEGATIVE (NEGATIVE); BARBITURATE SCREEN, URINE NEGATIVE (NEGATIVE); BENZODIAZEPINES SCREEN,URINE NEGATIVE (NEGATIVE); CANNABINOID SCREEN,URINE NEGATIVE (NEGATIVE); COCAINE SCREEN,URINE NEGATIVE (NEGATIVE); METHADONE SCREEN, URINE NEGATIVE (NEGATIVE); OPIATE SCREEN,URINE NEGATIVE (NEGATIVE); PHENCYCLIDINE SCREEN,URINE NEGATIVE (NEGATIVE)
[2023-01-31 16:00] LABS: BACTERIA,URINE Few /HPF (None Seen); SQUAMOUS EPITHELIAL CELL,UR Rare /LPF (None Seen); WBC,URINE 26-50 /HPF (0-5); YEAST,URINE Few /HPF (None Seen)
[2023-01-31] MEDS ORDERED: CEPH-558 PO (17:02)
[2023-01-31] MEDS ORDERED: CEPHALEXIN MONOHYDRATE 500 MG CAPSULE PO ONE (17:15)
[2023-01-31] MEDS ORDERED: HALOPERIDOL 5 MG TABLET PO ONE (19:00)
[2023-01-31] MEDS ORDERED: LORazepam 1 MG TABLET PO ONE (19:00)
[2023-01-31 20:24] VITALS: BP 124/70; PULSE 74; RESP 18; TEMP 97.3
== END 2023-01-31 20:24 | disposition home or self-care (01) ==
LOC: EMS 09:52
DX: N39.0 Urinary tract infection, site not specified (principal); E11.65 Type 2 diabetes mellitus with hyperglycemia; E86.0 Dehydration; I63.9 Cerebral infarction, unspecified; G89.4 Chronic pain syndrome; Z88.0 Allergy status to penicillin
CPT/HCPCS: 99285; 96374; 70450; 71045; 96361; 80053; 82962; 83880; 84484; 85025; 36415; 87086; 87186; 93005; 81001; 80307 ×2; J1815; G0480

== ENCOUNTER 2023-02-23 14:08 | Inpatient (IN) | payer MEDICARE, OTHER ==
[~2023-02-23] VITALS: Ht 170.2 cm; Wt 91.0 kg
[~2023-02-23 14:08] MED LIST changes: +CEPH-558 PO; -DOCU-350 PO; +DOCU-352 PO
[2023-02-23] MEDS ORDERED: INSULIN REGULAR, HUMAN 100 UNITS/ML IVP ONE (14:45)
[2023-02-23] MEDS ORDERED: BACITRACIN 0.9 GM PACKET OINTMENT TP ONE (14:45)
[2023-02-23] MEDS ORDERED: SODIUM CHLORIDE 0.9% 2,000 ML IV ONE (14:45)
[2023-02-23 15:13] LABS: BASOPHILS % (AUTO) 0.2 % (0.0-2.0); EOSINOPHILS % (AUTO) 1.7 % (1.0-6.0); HEMATOCRIT 40.6 % (41-53); HEMOGLOBIN 13.4 g/dL (13.5-17.5); LYMPHOCYTES # (AUTO) 1.5 K/uL (1.0-4.8); LYMPHOCYTES % (AUTO) 27.3 % (22.0-44.0); MEAN CORPUSCULAR HEMOGLOBIN 28.4 pg (26.0-34.0); MEAN CORPUSCULAR HGB CONC 33.1 G/dL (31.0-37.0); MEAN CORPUSCULAR VOLUME 86 fL (80-100); MONOCYTES # (AUTO) 0.1 K/uL (0.1-1.0); MONOCYTES % (AUTO) 1.9 % (2.0-9.0); NEUTROPHILS # (AUTO) 3.8 K/uL (1.8-7.7); NEUTROPHILS % (AUTO) 68.9 % (40.0-70.0); PLATELET COUNT (AUTO) 201 K/uL (150-450); RED BLOOD CELL COUNT(AUTO) 4.72 MIL/uL (4.50-5.90); RED CELL DISTRIBUTION WIDTH 13.5 % (11.5-14.5)
[2023-02-23 15:44] LABS: LACTIC ACID 1.4 mmol/L (0.4-2.0)
[2023-02-23 15:50] LABS: ALANINE AMINOTRANSFERASE 80 U/L (12-78); ALBUMIN 2.8 g/dL (3.4-5.0); ALKALINE PHOSPHATASE 123 U/L (46-116); ANION GAP 15 mmol/L (8-16); ASPARTATE AMINOTRANSFERASE 45 U/L (15-37); BILIRUBIN,TOTAL 0.5 mg/dL (0.1-1.0); CALCIUM, TOTAL 7.9 mg/dL (8.8-10.5); CARBON DIOXIDE 23 mmol/L (22-29); CHLORIDE 98 mmol/L (98-107); CREATININE 0.89 mg/dL (0.60-1.30); GLOMERULAR FILTR. RATE CALC > 60 mL/min (>60); LIPASE 26 U/L (16-77); POTASSIUM 3.7 mmol/L (3.5-5.1); SODIUM SERUM 136 mmol/L (136-145); TOTAL PROTEIN, SERUM 6.4 g/dL (6.4-8.2)
[2023-02-23 15:55] LABS: GLUCOSE,RANDOM 581 mg/dL (70-110)
[2023-02-23 16:07] LABS: ACETONE,BLOOD TRACE (NEGATIVE)
[2023-02-23 16:21] LABS: GLUCOMETER DEV NAME(LOC) ERT.5
[2023-02-23 16:35] LABS: COVID AG,FIA SOURCE NASOPHARYNGEAL
[2023-02-23] MEDS ORDERED: ONDANSETRON HCL 4 MG/2 ML VIAL IVP PRN (16:45)
[2023-02-23] MEDS ORDERED: ZOLPIDEM TARTRATE 5 MG TABLET PO PRN (16:45)
[2023-02-23] MEDS ORDERED: INSULIN LISPRO 100 UNITS/ML SQ PRN (16:45)
[2023-02-23] MEDS ORDERED: SODIUM CHLORIDE 0.9% 1,000 ML IV ONE (16:45)
[2023-02-23] MEDS ORDERED: MAGNESIUM HYDROXIDE SUSPENSION 30 ML UDCUP PO PRN (16:45)
[2023-02-23] MEDS ORDERED: GLUCAGON,HUMAN RECOMBINANT 1 MG VIAL IM PRN (16:45)
[2023-02-23] MEDS ORDERED: DEXTROSE 50%-WATER 25 GM/50 ML SYRINGE IVP PRN (17:00)
[2023-02-23 19:06] LABS: GLUCOMETER DEV NAME(LOC) ER.6
[2023-02-23 19:46] LABS: AMPHET/METH SCREEN,URINE NEGATIVE (NEGATIVE); APPEARANCE,URINE CLEAR (CLEAR); BARBITURATE SCREEN, URINE NEGATIVE (NEGATIVE); BENZODIAZEPINES SCREEN,URINE NEGATIVE (NEGATIVE); BILIRUBIN,URINE NEGATIVE (NEGATIVE); CANNABINOID SCREEN,URINE NEGATIVE (NEGATIVE); COCAINE SCREEN,URINE NEGATIVE (NEGATIVE); GLUCOSE, URINE (UA) >=1000 mg/dL (NEGATIVE); KETONES,URINE NEGATIVE (NEGATIVE); LEUKOCYTE ESTERASE ,URINE LARGE (NEGATIVE); METHADONE SCREEN, URINE NEGATIVE (NEGATIVE); NITRATE,URINE NEGATIVE (NEGATIVE); OCCULT BLOOD,URINE NEGATIVE (NEGATIVE); OPIATE SCREEN,URINE NEGATIVE (NEGATIVE); PHENCYCLIDINE SCREEN,URINE NEGATIVE (NEGATIVE); PROTEIN,URINE NEGATIVE (NEGATIVE); SPECIFIC GRAVITIY, URINE 1.014 (1.003-1.030)
[2023-02-23 20:10] LABS: RBC,URINE 0-2 /HPF (0-2)
[2023-02-23 20:11] LABS: BACTERIA,URINE Few /HPF (None Seen); SQUAMOUS EPITHELIAL CELL,UR Rare /LPF (None Seen); YEAST,URINE Few /HPF (None Seen)
[2023-02-23] MEDS: INSULIN GLARGINE,HUM.REC.ANLOG 100 UNITS/ML SQ SCH (20:44)
[2023-02-23] MEDS: INSULIN LISPRO 100 UNITS/ML SQ PRN (20:45)
[2023-02-23] MEDS ORDERED: INSULIN GLARGINE,HUM.REC.ANLOG 100 UNITS/ML SQ SCH (21:00)
[2023-02-23 21:15] VITALS: BP 144/94; PULSE 66; RESP 20; TEMP 97.7
[2023-02-23 23:16] LABS: GLUCOMETER DEV NAME(LOC) 5N.2C
[2023-02-23] MEDS: HEPARIN SODIUM,PORCINE 5,000 UNITS/ML VIAL SQ SCH (23:38)
[2023-02-24 00:45] VITALS: BP 143/97; PULSE 80; RESP 20; TEMP 96.8
[2023-02-24 04:25] VITALS: BP 140/95; PULSE 81; RESP 20; TEMP 97
[2023-02-24] MEDS: INSULIN LISPRO 100 UNITS/ML SQ PRN ×4 (06:02→20:37)
[2023-02-24 08:08] VITALS: BP 135/73; PULSE 73; RESP 20; TEMP 98.2
[2023-02-24] MEDS: FAMOTIDINE 20 MG TABLET PO SCH (08:41)
[2023-02-24] MEDS: HEPARIN SODIUM,PORCINE 5,000 UNITS/ML VIAL SQ SCH ×2 (08:43→16:35)
[2023-02-24] MEDS: ACETAMINOPHEN 325 MG TABLET PO PRN ×2 (11:52→20:24)
[2023-02-24 12:20] VITALS: BP 127/89; PULSE 70; RESP 20; TEMP 98
[2023-02-24] MEDS: INSULIN GLARGINE,HUM.REC.ANLOG 100 UNITS/ML SQ SCH ×2 (12:45→20:35)
[2023-02-24 15:56] LABS: GLUCOMETER DEV NAME(LOC) 5N.2C
[2023-02-24 15:56] LABS: GLUCOMETER DEV NAME(LOC) 5N.2C
[2023-02-24 16:11] VITALS: BP 122/95; PULSE 87; TEMP 98.5
[2023-02-24 17:56] LABS: GLUCOMETER DEV NAME(LOC) 5N.2C
[2023-02-24 20:00] VITALS: BP_SYST 112; BP_SYST 137; BP_DIAS 59; BP_DIAS 78; PULSE 100; PULSE 72; RESP 20; TEMP 98.1; TEMP 99.1
[2023-02-25] VITALS: BP 115/87; PULSE 84; RESP 18; TEMP 97.8
[2023-02-25] MEDS: HEPARIN SODIUM,PORCINE 5,000 UNITS/ML VIAL SQ SCH ×4 (00:27→23:37)
[2023-02-25 02:56] LABS: GLUCOMETER DEV NAME(LOC) 5S.1B
[2023-02-25 04:00] VITALS: BP 124/97; PULSE 76; RESP 18; TEMP 98.1
[2023-02-25] MEDS: INSULIN LISPRO 100 UNITS/ML SQ PRN ×4 (06:31→20:21)
[2023-02-25 06:56] LABS: GLUCOMETER DEV NAME(LOC) 5N.2C
[2023-02-25 07:50] VITALS: BP 129/82; PULSE 81; RESP 19; TEMP 97.9
[2023-02-25] MEDS: FAMOTIDINE 20 MG TABLET PO SCH (08:57)
[2023-02-25] MEDS: INSULIN GLARGINE,HUM.REC.ANLOG 100 UNITS/ML SQ SCH (09:01)
[2023-02-25 11:18] VITALS: BP 129/92; PULSE 82; RESP 18; TEMP 98
[2023-02-25 15:45] VITALS: BP 135/96; PULSE 66; RESP 18; TEMP 98.6
[2023-02-25] MEDS: RisperiDONE 2 MG TABLET PO SCH ×2 (16:13→21:37)
[2023-02-25] MEDS ORDERED: INSULIN GLARGINE,HUM.REC.ANLOG 100 UNITS/ML SQ SCH (21:00)
[2023-02-25 21:06] LABS: GLUCOMETER DEV NAME(LOC) 5N.2C
[2023-02-25 21:26] VITALS: BP 128/85; PULSE 77; RESP 18; TEMP 98.3
[2023-02-26] MEDS: ACETAMINOPHEN 325 MG TABLET PO PRN ×2 (00:06→12:36)
[2023-02-26 00:36] VITALS: BP 128/80; PULSE 83; RESP 18; TEMP 97.5
[2023-02-26 04:16] LABS: GLUCOMETER DEV NAME(LOC) 5N.1C
[2023-02-26 05:32] VITALS: BP 132/92; PULSE 87; RESP 18; TEMP 97.9
[2023-02-26] MEDS: INSULIN LISPRO 100 UNITS/ML SQ PRN ×4 (06:13→20:12)
[2023-02-26 06:26] LABS: GLUCOMETER DEV NAME(LOC) 5S.1B
[2023-02-26 07:25] LABS: BASOPHILS % (AUTO) 0.4 % (0.0-2.0); EOSINOPHILS % (AUTO) 2.1 % (1.0-6.0); HEMOGLOBIN 15.3 g/dL (13.5-17.5); LYMPHOCYTES # (AUTO) 2.7 K/uL (1.0-4.8); LYMPHOCYTES % (AUTO) 29.9 % (22.0-44.0); MEAN CORPUSCULAR HGB CONC 33.2 G/dL (31.0-37.0); MEAN CORPUSCULAR VOLUME 87 fL (80-100); MONOCYTES # (AUTO) 0.7 K/uL (0.1-1.0); MONOCYTES % (AUTO) 7.6 % (2.0-9.0); NEUTROPHILS # (AUTO) 5.4 K/uL (1.8-7.7); PLATELET COUNT (AUTO) 221 K/uL (150-450); RED BLOOD CELL COUNT(AUTO) 5.27 MIL/uL (4.50-5.90)
[2023-02-26 07:30] VITALS: BP 125/90; PULSE 80; RESP 18; TEMP 97.6
[2023-02-26 07:43] LABS: ANION GAP 11 mmol/L (8-16); CALCIUM, TOTAL 9.2 mg/dL (8.8-10.5); CARBON DIOXIDE 28 mmol/L (22-29); CHLORIDE 97 mmol/L (98-107); CREATININE 0.64 mg/dL (0.60-1.30); GLOMERULAR FILTR. RATE CALC > 60 mL/min (>60); GLUCOSE,RANDOM 217 mg/dL (70-110); POTASSIUM 3.7 mmol/L (3.5-5.1); SODIUM SERUM 136 mmol/L (136-145)
[2023-02-26] MEDS: FAMOTIDINE 20 MG TABLET PO SCH (08:23)
[2023-02-26] MEDS: RisperiDONE 2 MG TABLET PO SCH ×2 (08:23→20:13)
[2023-02-26] MEDS: HEPARIN SODIUM,PORCINE 5,000 UNITS/ML VIAL SQ SCH ×2 (08:23→16:28)
[2023-02-26] MEDS ORDERED: INSULIN GLARGINE,HUM.REC.ANLOG 100 UNITS/ML SQ SCH ×2 (09:00→21:00)
[2023-02-26 10:41] LABS: GLUCOMETER DEV NAME(LOC) 5N.1C
[2023-02-26 10:41] LABS: GLUCOMETER DEV NAME(LOC) 5N.1C
[2023-02-26 11:31] VITALS: BP 120/73; PULSE 84; RESP 18; TEMP 98.5
[2023-02-26 13:16] LABS: GLUCOMETER DEV NAME(LOC) 5N.1C
[2023-02-26 15:31] VITALS: BP 126/88; PULSE 81; RESP 18; TEMP 98
[2023-02-26 18:41] LABS: GLUCOMETER DEV NAME(LOC) 5N.1C
[2023-02-26 20:04] VITALS: BP 136/93; PULSE 93; RESP 19; TEMP 98.3
[2023-02-27] MEDS: HEPARIN SODIUM,PORCINE 5,000 UNITS/ML VIAL SQ SCH ×3 (00:09→16:16)
[2023-02-27 00:14] VITALS: BP 127/79; PULSE 78; RESP 17; TEMP 98.1
[2023-02-27 04:43] VITALS: BP 105/77; PULSE 99; RESP 17; TEMP 98.2
[2023-02-27] MEDS: INSULIN LISPRO 100 UNITS/ML SQ PRN ×3 (06:42→17:17)
[2023-02-27 08:00] VITALS: BP 116/87; PULSE 96; RESP 18; TEMP 98.8
[2023-02-27] MEDS: RisperiDONE 2 MG TABLET PO SCH (08:17)
[2023-02-27] MEDS: FAMOTIDINE 20 MG TABLET PO SCH (08:17)
[2023-02-27] MEDS ORDERED: INSULIN GLARGINE,HUM.REC.ANLOG 100 UNITS/ML SQ SCH (09:00)
[2023-02-27 11:30] VITALS: BP 121/74; PULSE 91; RESP 17; TEMP 98.4
[2023-02-27 15:50] VITALS: BP 123/78; PULSE 86; RESP 18; TEMP 97.7
[2023-02-27] MEDS ORDERED: FAMO20 PO (16:51)
[2023-02-27] MEDS ORDERED: HEPA500018 SQ (16:52)
[2023-02-27] MEDS ORDERED: INSLAN SQ ×2 (16:53)
[2023-02-27] MEDS ORDERED: RISP2TAB86 PO (16:54)
[2023-02-27 21:51] LABS: GLUCOMETER DEV NAME(LOC) 5N.2C
[2023-02-28 01:01] LABS: GLUCOMETER DEV NAME(LOC) 5N.1C
[2023-02-28 01:01] LABS: GLUCOMETER DEV NAME(LOC) 5N.1C
[2023-02-28 01:01] LABS: GLUCOMETER DEV NAME(LOC) 5N.1C
[2023-02-28 01:01] LABS: GLUCOMETER DEV NAME(LOC) 5N.1C
[2023-02-28 01:01] LABS: GLUCOMETER DEV NAME(LOC) 5N.1C
[2023-02-28] MEDS ORDERED: INSULIN GLARGINE,HUM.REC.ANLOG 100 UNITS/ML SQ SCH (09:00)
== END 2023-02-27 18:45 | DRG 988 ==
LOC: EMS 14:10 → 5S 16:42
PROVIDERS: ADMIT Internal Medicine; ATTEND Internal Medicine
PROC: 0JBK0ZZ Excision of Left Hand Subcutaneous Tissue and Fascia, Open Approach (ICD-10-PCS; principal; 2023-02-23)
DX: E11.65 Type 2 diabetes mellitus with hyperglycemia (principal); F20.0 Paranoid schizophrenia; S69.82XA Other specified injuries of left wrist, hand and finger(s), initial encounter; E66.01 Morbid (severe) obesity due to excess calories; G89.4 Chronic pain syndrome; E86.0 Dehydration; X58.XXXA Exposure to other specified factors, initial encounter; M19.90 Unspecified osteoarthritis, unspecified site; K75.9 Inflammatory liver disease, unspecified; Z91.148 Patient's other noncompliance with medication regimen for other reason; Z68.31 Body mass index [BMI] 31.0-31.9, adult; Z88.0 Allergy status to penicillin; Z86.73 Personal history of transient ischemic attack (TIA), and cerebral infarction without residual deficits; Z79.899 Other long term (current) drug therapy; Z83.3 Family history of diabetes mellitus; Y93.89 Activity, other specified; Y92.89 Other specified places as the place of occurrence of the external cause; Y99.8 Other external cause status
CPT/HCPCS: 80048; 80053; 80307; 81001; 82009; 82962; 83036; 83605; 83690; 84484; 85025; 87086; 87186; 93005; 97116; 97161; 97530; 99285; G0480; J1644; J1815

== ENCOUNTER 2023-10-27 15:54 | Emergency (ER) | payer MEDICARE, OTHER ==
[~2023-10-27] VITALS: Ht 172.7 cm; Wt 79.5 kg
[~2023-10-27 15:54] MED LIST changes: -DOCU-352 PO; +DOCU-412 PO; +FAMO20 PO; +HEPA500018 SQ; +INSLAN SQ; +RISP-32 PO; -TRAM-559 PO; +TRAM50TA5 PO
[2023-10-27 16:16] VITALS: BP 142/92; PULSE 96; RESP 18
[2023-10-27] MEDS ORDERED: ACETAMINOPHEN 500 MG TABLET PO ONE (16:30)
[2023-10-27] MEDS ORDERED: BACITRACIN 0.9 GM PACKET OINTMENT TP ONE (16:30)
[2023-10-27] MEDS ORDERED: OLANZapine 5 MG TABLET PO ONE (16:45)
[2023-10-27] MEDS ORDERED: SODIUM CHLORIDE 0.9% 1,000 ML IV ONE (16:45)
[2023-10-27 16:46] LABS: BASOPHILS % (AUTO) 1.4 % (0.0-2.0); EOSINOPHILS % (AUTO) 0.2 % (1.0-6.0); HEMATOCRIT 46.1 % (41-53); HEMOGLOBIN 15.6 g/dL (13.5-17.5); LYMPHOCYTES % (AUTO) 21.7 % (22.0-44.0); MEAN CORPUSCULAR HGB CONC 33.8 G/dL (31.0-37.0); MEAN CORPUSCULAR VOLUME 86 fL (80-100); MONOCYTES # (AUTO) 0.6 K/uL (0.1-1.0); MONOCYTES % (AUTO) 6.6 % (2.0-9.0); NEUTROPHILS # (AUTO) 6.4 K/uL (1.8-7.7); NEUTROPHILS % (AUTO) 70.1 % (40.0-70.0); PLATELET COUNT (AUTO) 250 K/uL (150-450); RED BLOOD CELL COUNT(AUTO) 5.37 MIL/uL (4.50-5.90); RED CELL DISTRIBUTION WIDTH 14.3 % (11.5-14.5); WHITE BLOOD COUNT (AUTO) 9.2 K/uL (4.5-11.0)
[2023-10-27 16:52] LABS: ALCOHOL, URINE DRUG SCREEN NEGATIVE (NEGATIVE); AMPHET/METH SCREEN,URINE NEGATIVE (NEGATIVE); BARBITURATE SCREEN, URINE NEGATIVE (NEGATIVE); BENZODIAZEPINES SCREEN,URINE NEGATIVE (NEGATIVE); CANNABINOID SCREEN,URINE POSITIVE (NEGATIVE); COCAINE SCREEN,URINE NEGATIVE (NEGATIVE); METHADONE SCREEN, URINE NEGATIVE (NEGATIVE); OPIATE SCREEN,URINE NEGATIVE (NEGATIVE); PHENCYCLIDINE SCREEN,URINE NEGATIVE (NEGATIVE)
[2023-10-27 16:54] LABS: ALCOHOL, BLOOD (SERUM) < 3 mg/dL (0-10)
[2023-10-27 16:56] LABS: ALANINE AMINOTRANSFERASE 133 U/L (12-78); ALBUMIN 3.4 g/dL (3.4-5.0); ALKALINE PHOSPHATASE 143 U/L (46-116); ANION GAP 13 mmol/L (8-16); ASPARTATE AMINOTRANSFERASE 67 U/L (15-37); BILIRUBIN,TOTAL 0.9 mg/dL (0.1-1.0); CALCIUM, TOTAL 9.1 mg/dL (8.8-10.5); CARBON DIOXIDE 20 mmol/L (22-29); CHLORIDE 95 mmol/L (98-107); CREATININE 1.26 mg/dL (0.60-1.30); GLOMERULAR FILTR. RATE CALC 59 mL/min (>60); POTASSIUM 3.7 mmol/L (3.5-5.1); SODIUM SERUM 128 mmol/L (136-145); TOTAL PROTEIN, SERUM 7.7 g/dL (6.4-8.2); UREA NITROGEN, BLOOD 10 mg/dL (7-18)
[2023-10-27 17:01] LABS: GLUCOSE,RANDOM 476 mg/dL (70-110)
== END 2023-10-27 17:27 | disposition left against medical advice (07) ==
LOC: EMS 15:57
DX: S80.212A Abrasion, left knee, initial encounter (principal); S80.211A Abrasion, right knee, initial encounter; E11.9 Type 2 diabetes mellitus without complications; Z86.73 Personal history of transient ischemic attack (TIA), and cerebral infarction without residual deficits; Z88.0 Allergy status to penicillin; V99.XXXA Unspecified transport accident, initial encounter; Y93.89 Activity, other specified; Y92.89 Other specified places as the place of occurrence of the external cause; Y99.8 Other external cause status
CPT/HCPCS: 99283; 80053; 85025; 36415; 80307; G0480

== ENCOUNTER 2024-04-04 13:32 | Inpatient (IN) | payer MEDICARE, MEDICAID ==
[~2024-04-04] VITALS: Ht 175.3 cm; Wt 87.4 kg
[~2024-04-04 13:32] MED LIST changes: -AMLO-257 PO; +ASPI-1444 PO; -BENZ1TAB84 PO; -CEPH-558 PO; -CITA10TA99 PO; -CLOB15CR10 TP; -CLON-595 PO; -CLOZ100T11 PO; -DOCU-412 PO; +ESCI-8 PO; -FLUP5TAB31 PO; -GABA-1181 PO; +GABA-529 PO; -HEPA500018 SQ; -HYDR-3831 PO; -HYDR25TA2 PO; -HYDR30CR3 TP; -HYDR50CA7 PO; +INSU100I56 SQ; +LOSA-381 PO; -METH4TAB3 PO; -OMEP20CA4 PO; -OXYB5TAB20 PO; -PALI6TAB15 PO; -PERM60CR19 TP; -PROM5L PO; -RISPC50 IM; -TRAM50TA5 PO; -TRAZ-257 PO
[2024-04-04 16:48] VITALS: BP 132/88; PULSE 68; RESP 18; TEMP 98.4; O2SAT 99
[2024-04-04] MEDS ORDERED: OMEPRAZOLE 20 MG CAPSULE PO PRN (21:30)
[2024-04-04] MEDS ORDERED: PETROLATUM,WHITE 28 GM JELLY TP PRN (21:30)
[2024-04-04] MEDS ORDERED: LOPERAMIDE HCL 2 MG CAPSULE PO PRN (21:30)
[2024-04-04] MEDS ORDERED: BACITRACIN 28 GM OINTMENT TP PRN (21:30)
[2024-04-04] MEDS ORDERED: DOCUSATE SODIUM 100 MG CAPSULE PO PRN (21:30)
[2024-04-04] MEDS ORDERED: MAGNESIUM HYDROXIDE SUSPENSION 30 ML UDCUP PO PRN (21:30)
[2024-04-04] MEDS ORDERED: CloNIDine HCL 0.1 MG TABLET PO PRN (21:30)
[2024-04-04] MEDS ORDERED: DEXTROSE 50%-WATER 25 GM/50 ML SYRINGE IVP PRN (21:30)
[2024-04-04] MEDS ORDERED: ONDANSETRON 4 MG TABLET PO PRN (21:30)
[2024-04-04] MEDS ORDERED: IBUPROFEN 600 MG TABLET PO PRN (21:30)
[2024-04-04 21:32] VITALS: BP 112/65; PULSE 103; RESP 20; TEMP 98.2; O2SAT 97
[2024-04-04] MEDS ORDERED: BENZOCAINE/MENTHOL LOZENGE PO PRN (22:00)
[2024-04-04] MEDS: INSULIN LISPRO 100 UNITS/ML SQ PRN (22:00)
[2024-04-04] MEDS ORDERED: ALBUTEROL SULFATE HFA 90 MCG/PUFF 8 GM INHALER IH PRN (22:00)
[2024-04-04] MEDS: ZOLPIDEM TARTRATE 10 MG TABLET PO PRN (23:15)
[2024-04-05 05:21] LABS: GLUCOMETER DEV NAME(LOC) 3E.I 2; GLUCOSE,POINT OF CARE 152 MG/DL (70-110)
[2024-04-05] MEDS: GEMFIBROZIL 600 MG TABLET PO SCH (06:34)
[2024-04-05] MEDS: ASPIRIN 81 MG DR TABLET PO SCH (08:47)
[2024-04-05] MEDS: GABAPENTIN 100 MG CAPSULE PO SCH (08:47)
[2024-04-05] MEDS: LOSARTAN POTASSIUM 25 MG TABLET PO SCH (09:00)
[2024-04-05 11:08] VITALS: BP 146/80; PULSE 85; RESP 18; TEMP 97; O2SAT 98
[2024-04-05 11:51] LABS: GLUCOMETER DEV NAME(LOC) 3EX.2; GLUCOSE,POINT OF CARE 197 MG/DL (70-110)
[2024-04-05] MEDS: HALOPERIDOL 5 MG TABLET PO PRN (17:15)
[2024-04-05 17:25] LABS: GLUCOMETER DEV NAME(LOC) 3EX.2; GLUCOSE,POINT OF CARE 250 MG/DL (70-110)
[2024-04-05 21:06] VITALS: BP 119/65; PULSE 99; RESP 18; TEMP 98.1
[2024-04-05] MEDS: LORazepam 2 MG TABLET PO PRN (21:16)
[2024-04-05 21:20] LABS: GLUCOMETER DEV NAME(LOC) 3E.I 2; GLUCOSE,POINT OF CARE 167 MG/DL (70-110)
[2024-04-06 06:45] LABS: GLUCOMETER DEV NAME(LOC) 3E.I 2; GLUCOSE,POINT OF CARE 233 MG/DL (70-110)
[2024-04-06 10:21] VITALS: BP 142/94; PULSE 112; RESP 18; TEMP 97.4
[2024-04-06 11:35] LABS: GLUCOMETER DEV NAME(LOC) 3EX.2; GLUCOSE,POINT OF CARE 261 MG/DL (70-110)
[2024-04-06 17:25] LABS: GLUCOMETER DEV NAME(LOC) 3EX.2; GLUCOSE,POINT OF CARE 196 MG/DL (70-110)
[2024-04-06 21:50] LABS: GLUCOMETER DEV NAME(LOC) 3E.I 2; GLUCOSE,POINT OF CARE 242 MG/DL (70-110)
[2024-04-06 22:38] VITALS: BP 129/91; PULSE 110; RESP 18; RESP 8; TEMP 97.8; O2SAT 99
[2024-04-07 07:16] LABS: GLUCOMETER DEV NAME(LOC) 3E.I 2; GLUCOSE,POINT OF CARE 161 MG/DL (70-110)
[2024-04-07 09:59] VITALS: BP 112/50; PULSE 95; RESP 18; TEMP 97.5; O2SAT 95
[2024-04-07 12:30] LABS: GLUCOMETER DEV NAME(LOC) 3EX.2; GLUCOSE,POINT OF CARE 255 MG/DL (70-110)
[2024-04-07 17:40] LABS: GLUCOMETER DEV NAME(LOC) 3EX.2; GLUCOSE,POINT OF CARE 229 MG/DL (70-110)
[2024-04-07 20:11] LABS: GLUCOMETER DEV NAME(LOC) 3E.I 2; GLUCOSE,POINT OF CARE 238 MG/DL (70-110)
[2024-04-07 20:39] VITALS: BP 137/73; PULSE 100; RESP 18; TEMP 98.1; O2SAT 97
[2024-04-08 06:38] LABS: COVID AG,FIA SOURCE NASAL SWAB
[2024-04-08 06:46] LABS: GLUCOMETER DEV NAME(LOC) 3E.I 2; GLUCOSE,POINT OF CARE 210 MG/DL (70-110)
[2024-04-08 06:56] LABS: SARS-COV2 (COVID) ANTIGEN,FIA Negative (Negative)
[2024-04-08 09:45] VITALS: BP 121/77; PULSE 93; RESP 19; TEMP 97; O2SAT 98
[2024-04-08 11:30] LABS: GLUCOMETER DEV NAME(LOC) 3E.I 2; GLUCOSE,POINT OF CARE 293 MG/DL (70-110)
[2024-04-08 17:21] LABS: GLUCOMETER DEV NAME(LOC) 3E.I 2; GLUCOSE,POINT OF CARE 247 MG/DL (70-110)
[2024-04-08] MEDS: HALOPERIDOL 5 MG TABLET PO SCH (20:58)
[2024-04-08 21:06] LABS: GLUCOMETER DEV NAME(LOC) 3E.I 2; GLUCOSE,POINT OF CARE 306 MG/DL (70-110)
[2024-04-08 21:09] VITALS: BP 125/68; PULSE 77; RESP 18; TEMP 97.9; O2SAT 98
[2024-04-09 06:21] LABS: GLUCOMETER DEV NAME(LOC) 3E.I 2; GLUCOSE,POINT OF CARE 257 MG/DL (70-110)
[2024-04-09 10:03] VITALS: BP 149/69; PULSE 107; RESP 16; TEMP 97.7; O2SAT 96
[2024-04-09 12:00] LABS: GLUCOMETER DEV NAME(LOC) 3EX.2; GLUCOSE,POINT OF CARE 236 MG/DL (70-110)
[2024-04-09 17:36] LABS: GLUCOMETER DEV NAME(LOC) 3EX.2; GLUCOSE,POINT OF CARE 261 MG/DL (70-110)
[2024-04-09 21:26] LABS: GLUCOMETER DEV NAME(LOC) 3E.I 2; GLUCOSE,POINT OF CARE 300 MG/DL (70-110)
[2024-04-09 21:30] VITALS: BP 169/98; PULSE 107; RESP 18; TEMP 97.9; O2SAT 98
[2024-04-10 06:06] LABS: GLUCOMETER DEV NAME(LOC) 3E.I 2; GLUCOSE,POINT OF CARE 188 MG/DL (70-110)
[2024-04-10 08:46] VITALS: BP 145/89; PULSE 114; RESP 16; TEMP 98.2; O2SAT 100
[2024-04-10 12:36] LABS: GLUCOMETER DEV NAME(LOC) 3EX.2; GLUCOSE,POINT OF CARE 400 MG/DL (70-110)
[2024-04-10 14:21] LABS: GLUCOMETER DEV NAME(LOC) 3EX.2; GLUCOSE,POINT OF CARE 246 MG/DL (70-110)
[2024-04-10 16:26] LABS: GLUCOMETER DEV NAME(LOC) 3EX.2; GLUCOSE,POINT OF CARE 298 MG/DL (70-110)
[2024-04-10 20:35] VITALS: BP 138/87; PULSE 61; RESP 18; TEMP 97.8; O2SAT 96
[2024-04-10 20:40] VITALS: BP 138/87; PULSE 61; RESP 18; TEMP 97.8; O2SAT 96
[2024-04-10] MEDS: ACETAMINOPHEN 325 MG TABLET PO PRN (20:44)
[2024-04-10 21:16] LABS: GLUCOMETER DEV NAME(LOC) 3E.I 2; GLUCOSE,POINT OF CARE 336 MG/DL (70-110)
[2024-04-10 21:44] VITALS: RESP 18
[2024-04-11 06:26] LABS: GLUCOMETER DEV NAME(LOC) 3E.I 2; GLUCOSE,POINT OF CARE 244 MG/DL (70-110)
[2024-04-11 09:18] VITALS: BP 129/81; PULSE 111; RESP 20; TEMP 97.4; O2SAT 98
[2024-04-11] MEDS: INSULIN GLARGINE,HUM.REC.ANLOG 100 UNITS/ML SQ ONE (10:26)
[2024-04-11 12:00] LABS: GLUCOMETER DEV NAME(LOC) 3E.I 2; GLUCOSE,POINT OF CARE 381 MG/DL (70-110)
[2024-04-11 17:01] LABS: GLUCOMETER DEV NAME(LOC) 3E.I 2; GLUCOSE,POINT OF CARE 175 MG/DL (70-110)
[2024-04-11 20:07] VITALS: BP 155/94; PULSE 102; RESP 18; TEMP 98.2; O2SAT 98
[2024-04-11 21:06] LABS: GLUCOMETER DEV NAME(LOC) 3E.I 2; GLUCOSE,POINT OF CARE 239 MG/DL (70-110)
[2024-04-11] MEDS: INSULIN GLARGINE,HUM.REC.ANLOG 100 UNITS/ML SQ SCH (21:43)
[2024-04-12 06:31] LABS: GLUCOMETER DEV NAME(LOC) 3E.I 2; GLUCOSE,POINT OF CARE 187 MG/DL (70-110)
[2024-04-12 08:35] LABS: CHOL/HDL RATIO 3.4 (4.2-7.3)
[2024-04-12 08:40] LABS: HEMOGLOBIN A1C 9.5 % (3.8-5.6)
[2024-04-12 08:59] VITALS: BP 132/87; PULSE 114; RESP 19; TEMP 97.7; O2SAT 96
[2024-04-12 17:35] LABS: GLUCOMETER DEV NAME(LOC) 3E.I 2; GLUCOSE,POINT OF CARE 395 MG/DL (70-110)
[2024-04-12 20:26] VITALS: BP 135/91; PULSE 110; RESP 19; TEMP 97.8; O2SAT 96
[2024-04-12 20:41] LABS: GLUCOMETER DEV NAME(LOC) 3E.I 2; GLUCOSE,POINT OF CARE 130 MG/DL (70-110)
[2024-04-13 06:00] VITALS: BP 132/89; PULSE 105; RESP 18; TEMP 97.7; O2SAT 97
[2024-04-13 06:01] LABS: GLUCOMETER DEV NAME(LOC) 3E.I 2; GLUCOSE,POINT OF CARE 225 MG/DL (70-110)
[2024-04-13 06:47] VITALS: RESP 18; TEMP 97.7
[2024-04-13 08:15] VITALS: RESP 18
[2024-04-13 11:25] LABS: GLUCOMETER DEV NAME(LOC) 3E.I 2; GLUCOSE,POINT OF CARE 226 MG/DL (70-110)
[2024-04-13 17:00] LABS: GLUCOMETER DEV NAME(LOC) 3E.I 2; GLUCOSE,POINT OF CARE 173 MG/DL (70-110)
[2024-04-13 20:35] VITALS: BP 158/97; PULSE 114; RESP 18; TEMP 98.2; O2SAT 97
[2024-04-13 21:20] LABS: GLUCOMETER DEV NAME(LOC) 3E.I 2; GLUCOSE,POINT OF CARE 210 MG/DL (70-110)
[2024-04-14 06:50] LABS: GLUCOMETER DEV NAME(LOC) 3E.I 2; GLUCOSE,POINT OF CARE 156 MG/DL (70-110)
[2024-04-14 10:09] VITALS: BP 106/78; PULSE 110; RESP 18; TEMP 97.5; O2SAT 98
[2024-04-14 11:41] LABS: GLUCOMETER DEV NAME(LOC) 3EX.2; GLUCOSE,POINT OF CARE 246 MG/DL (70-110)
[2024-04-14 17:05] LABS: GLUCOMETER DEV NAME(LOC) 3EX.2; GLUCOSE,POINT OF CARE 393 MG/DL (70-110)
[2024-04-14 20:16] LABS: GLUCOMETER DEV NAME(LOC) 3E.I 2; GLUCOSE,POINT OF CARE 85 MG/DL (70-110)
[2024-04-14 21:17] VITALS: BP 139/75; PULSE 112; RESP 18; TEMP 97.9; O2SAT 98
[2024-04-15 06:31] LABS: GLUCOMETER DEV NAME(LOC) 3E.I 2; GLUCOSE,POINT OF CARE 145 MG/DL (70-110)
[2024-04-15 09:31] VITALS: BP 116/79; PULSE 107; RESP 18; TEMP 97.3; O2SAT 97
[2024-04-15 11:16] LABS: GLUCOMETER DEV NAME(LOC) 3E.I 2; GLUCOSE,POINT OF CARE 194 MG/DL (70-110)
[2024-04-15 16:31] LABS: GLUCOMETER DEV NAME(LOC) 3E.I 2; GLUCOSE,POINT OF CARE 257 MG/DL (70-110)
[2024-04-15 21:05] LABS: GLUCOMETER DEV NAME(LOC) 3E.I 2; GLUCOSE,POINT OF CARE 109 MG/DL (70-110)
[2024-04-15 21:10] VITALS: BP 147/81; PULSE 110; RESP 18; TEMP 97.6; O2SAT 98
[2024-04-16 06:11] LABS: GLUCOMETER DEV NAME(LOC) 3E.I 2; GLUCOSE,POINT OF CARE 137 MG/DL (70-110)
[2024-04-16 08:58] VITALS: BP 138/76; PULSE 97; RESP 18; TEMP 97.6; O2SAT 98
[2024-04-16 13:10] LABS: GLUCOMETER DEV NAME(LOC) 3E.I 2; GLUCOSE,POINT OF CARE 169 MG/DL (70-110)
[2024-04-16 17:26] LABS: GLUCOMETER DEV NAME(LOC) 3E.I 2; GLUCOSE,POINT OF CARE 242 MG/DL (70-110)
[2024-04-16 20:16] LABS: GLUCOMETER DEV NAME(LOC) 3E.I 2; GLUCOSE,POINT OF CARE 119 MG/DL (70-110)
[2024-04-16 21:19] VITALS: BP 113/73; PULSE 90; RESP 18; TEMP 97.6; O2SAT 97
[2024-04-16] MEDS: MAG HYDROX/ALUMINUM HYD/SIMETH ES 30 ML SUSPENSION UDCUP PO PRN (23:21)
[2024-04-17 06:01] LABS: GLUCOMETER DEV NAME(LOC) 3E.I 2; GLUCOSE,POINT OF CARE 159 MG/DL (70-110)
[2024-04-17 10:51] VITALS: BP 144/79; PULSE 88; RESP 18; TEMP 97.8; O2SAT 96
[2024-04-17 11:26] LABS: GLUCOMETER DEV NAME(LOC) 3E.I 2; GLUCOSE,POINT OF CARE 205 MG/DL (70-110)
[2024-04-17 17:30] LABS: GLUCOMETER DEV NAME(LOC) 3E.I 2; GLUCOSE,POINT OF CARE 168 MG/DL (70-110)
[2024-04-17 20:20] LABS: GLUCOMETER DEV NAME(LOC) 3E.I 2; GLUCOSE,POINT OF CARE 134 MG/DL (70-110)
[2024-04-17 21:44] VITALS: BP 154/93; PULSE 107; RESP 18; TEMP 97.7; O2SAT 97
[2024-04-18 06:01] LABS: GLUCOMETER DEV NAME(LOC) 3E.I 2; GLUCOSE,POINT OF CARE 123 MG/DL (70-110)
[2024-04-18] MEDS ORDERED: HALO5TAB23 PO (11:04)
[2024-04-18 11:15] VITALS: BP 128/77; PULSE 106; RESP 19; TEMP 97; O2SAT 98
[2024-04-18 12:46] LABS: GLUCOMETER DEV NAME(LOC) 3EX.2; GLUCOSE,POINT OF CARE 298 MG/DL (70-110)
[2024-04-18 17:06] LABS: GLUCOMETER DEV NAME(LOC) 3EX.2; GLUCOSE,POINT OF CARE 270 MG/DL (70-110)
== END 2024-04-18 18:34 | DRG 885 ==
LOC: 3EX 18:17
PROVIDERS: ADMIT Psychiatry & Neurology Psychiatry; ATTEND Psychiatry & Neurology Psychiatry
DX: F25.9 Schizoaffective disorder, unspecified (principal); E11.9 Type 2 diabetes mellitus without complications; I10 Essential (primary) hypertension; G89.4 Chronic pain syndrome; Z20.822 Contact with and (suspected) exposure to COVID-19; G40.909 Epilepsy, unspecified, not intractable, without status epilepticus; K02.9 Dental caries, unspecified; Z79.899 Other long term (current) drug therapy
CPT/HCPCS: 80061; 82962; 83036; 87081; G0378; J1815

== ENCOUNTER 2024-04-21 02:34 | Emergency (ER) | payer MEDICARE, OTHER ==
[~2024-04-21] VITALS: Ht 177.8 cm; Wt 78.0 kg
[~2024-04-21 02:34] MED LIST changes: -DIVA500T52 PO; -ESCI-8 PO; -FAMO20 PO; +HALO5TAB23 PO; -INSU100I56 SQ; -RISP-32 PO
[2024-04-21 03:09] VITALS: TEMP 98.4
[2024-04-21] MEDS: HALOPERIDOL 5 MG TABLET PO ONE (04:19)
[2024-04-21] MEDS: LORazepam 1 MG TABLET PO ONE ×2 (04:19→05:21)
[2024-04-21 04:22] LABS: BASOPHILS % (AUTO) 0.6 % (0.0-2.0); EOSINOPHILS % (AUTO) 1.7 % (1.0-6.0); HEMATOCRIT 42.8 % (41-53); HEMOGLOBIN 14.4 g/dL (13.5-17.5); LYMPHOCYTES # (AUTO) 2.3 K/uL (1.0-4.8); LYMPHOCYTES % (AUTO) 26.7 % (22.0-44.0); MEAN CORPUSCULAR HEMOGLOBIN 29.9 pg (26.0-34.0); MEAN CORPUSCULAR HGB CONC 33.7 G/dL (31.0-37.0); MEAN CORPUSCULAR VOLUME 89 fL (80-100); MONOCYTES # (AUTO) 0.6 K/uL (0.1-1.0); MONOCYTES % (AUTO) 7.3 % (2.0-9.0); NEUTROPHILS # (AUTO) 5.5 K/uL (1.8-7.7); NEUTROPHILS % (AUTO) 63.7 % (40.0-70.0); PLATELET COUNT (AUTO) 240 K/uL (150-450); RED BLOOD CELL COUNT(AUTO) 4.83 MIL/uL (4.50-5.90); RED CELL DISTRIBUTION WIDTH 13.2 % (11.5-14.5); WHITE BLOOD COUNT (AUTO) 8.7 K/uL (4.5-11.0)
[2024-04-21 04:22] LABS: COVID AG,FIA SOURCE NASAL SWAB
[2024-04-21 04:26] LABS: APPEARANCE,URINE HAZY (CLEAR); BILIRUBIN,URINE NEGATIVE (NEGATIVE); COLOR,URINE LIGHT YELLOW (YELLOW); GLUCOSE, URINE (UA) >=1000 mg/dL (NEGATIVE); KETONES,URINE TRACE mg/dL (NEGATIVE); LEUKOCYTE ESTERASE ,URINE SMALL (NEGATIVE); NITRATE,URINE NEGATIVE (NEGATIVE); OCCULT BLOOD,URINE NEGATIVE (NEGATIVE); PH,URINE 7.5 (5.0-8.0); PROTEIN,URINE NEGATIVE (NEGATIVE); SPECIFIC GRAVITIY, URINE 1.016 (1.003-1.030); UROBILINOGEN,URINE <=1.0 mg/dL (<=1.0)
[2024-04-21 04:31] LABS: ANION GAP 13 mmol/L (8-16); CALCIUM, TOTAL 8.6 mg/dL (8.8-10.5); CARBON DIOXIDE 25 mmol/L (22-29); CHLORIDE 98 mmol/L (98-107); CREATININE 0.86 mg/dL (0.60-1.30); GLOMERULAR FILTR. RATE CALC > 60 mL/min (>60); GLUCOSE,RANDOM 319 mg/dL (70-110); POTASSIUM 3.8 mmol/L (3.5-5.1); SODIUM SERUM 136 mmol/L (136-145); UREA NITROGEN, BLOOD 20 mg/dL (7-18)
[2024-04-21 04:34] LABS: ALCOHOL, URINE DRUG SCREEN NEGATIVE (NEGATIVE); AMPHET/METH SCREEN,URINE NEGATIVE (NEGATIVE); BARBITURATE SCREEN, URINE NEGATIVE (NEGATIVE); BENZODIAZEPINES SCREEN,URINE NEGATIVE (NEGATIVE); CANNABINOID SCREEN,URINE NEGATIVE (NEGATIVE); COCAINE SCREEN,URINE NEGATIVE (NEGATIVE); METHADONE SCREEN, URINE NEGATIVE (NEGATIVE); OPIATE SCREEN,URINE NEGATIVE (NEGATIVE); PHENCYCLIDINE SCREEN,URINE NEGATIVE (NEGATIVE)
[2024-04-21 04:35] LABS: PH,URINE DRUG SCREEN 7.5 (5.0-8.0)
[2024-04-21 04:39] LABS: ALCOHOL, BLOOD (SERUM) < 3 mg/dL (0-10)
[2024-04-21 04:44] LABS: SARS-COV2 (COVID) ANTIGEN,FIA Negative (Negative)
[2024-04-21 04:45] LABS: RBC,URINE 0-2 /HPF (0-2)
[2024-04-21 04:46] LABS: BACTERIA,URINE Moderate /HPF (None Seen); SQUAMOUS EPITHELIAL CELL,UR Few /LPF (None Seen)
[2024-04-21 07:20] VITALS: BP 128/79; PULSE 72; RESP 18; O2SAT 99
== END 2024-04-21 08:20 | disposition home or self-care (01) ==
LOC: EMS 02:35
DX: F25.9 Schizoaffective disorder, unspecified (principal); E11.65 Type 2 diabetes mellitus with hyperglycemia; G89.4 Chronic pain syndrome; Z88.0 Allergy status to penicillin; Z79.82 Long term (current) use of aspirin; Z20.822 Contact with and (suspected) exposure to COVID-19
CPT/HCPCS: 99284; 87426; 80048; 81001; 82962; 85025; 36415; 87086; 87186; 80307; G0480

== ENCOUNTER 2024-05-09 11:45 | Inpatient (IN) | payer MEDICARE, MEDICAID ==
[~2024-05-09] VITALS: Ht 170.2 cm; Wt 87.3 kg
[2024-05-09] MEDS ORDERED: RISP-32 PO (12:01)
[2024-05-09 12:11] LABS: COVID AG,FIA SOURCE NASAL SWAB
[2024-05-09 12:15] LABS: BASOPHILS % (AUTO) 0.5 % (0.0-2.0); EOSINOPHILS % (AUTO) 0.4 % (1.0-6.0); HEMATOCRIT 43.6 % (41-53); HEMOGLOBIN 14.6 g/dL (13.5-17.5); LYMPHOCYTES # (AUTO) 2.3 K/uL (1.0-4.8); LYMPHOCYTES % (AUTO) 25.9 % (22.0-44.0); MEAN CORPUSCULAR HEMOGLOBIN 29.7 pg (26.0-34.0); MEAN CORPUSCULAR HGB CONC 33.4 G/dL (31.0-37.0); MEAN CORPUSCULAR VOLUME 89 fL (80-100); MONOCYTES # (AUTO) 0.8 K/uL (0.1-1.0); MONOCYTES % (AUTO) 8.5 % (2.0-9.0); NEUTROPHILS # (AUTO) 5.8 K/uL (1.8-7.7); NEUTROPHILS % (AUTO) 64.7 % (40.0-70.0); PLATELET COUNT (AUTO) 296 K/uL (150-450); RED BLOOD CELL COUNT(AUTO) 4.91 MIL/uL (4.50-5.90); RED CELL DISTRIBUTION WIDTH 13.5 % (11.5-14.5); WHITE BLOOD COUNT (AUTO) 8.9 K/uL (4.5-11.0)
[2024-05-09 12:21] LABS: ANION GAP 8 mmol/L (8-16); CARBON DIOXIDE 25 mmol/L (22-29); CHLORIDE 96 mmol/L (98-107); CREATININE 0.79 mg/dL (0.60-1.30); GLUCOSE,RANDOM 316 mg/dL (70-110); POTASSIUM 4.3 mmol/L (3.5-5.1); SODIUM SERUM 129 mmol/L (136-145); UREA NITROGEN, BLOOD 17 mg/dL (7-18)
[2024-05-09 12:22] LABS: CALCIUM, TOTAL 8.9 mg/dL (8.8-10.5); GLOMERULAR FILTR. RATE CALC > 60 mL/min (>60)
[2024-05-09 12:32] LABS: SARS-COV2 (COVID) ANTIGEN,FIA Negative (Negative)
[2024-05-09 14:16] LABS: ALCOHOL, BLOOD (SERUM) < 3 mg/dL (0-10)
[2024-05-09 14:53] LABS: APPEARANCE,URINE CLEAR (CLEAR); BILIRUBIN,URINE NEGATIVE (NEGATIVE); COLOR,URINE LIGHT YELLOW (YELLOW); GLUCOSE, URINE (UA) >=1000 mg/dL (NEGATIVE); KETONES,URINE NEGATIVE (NEGATIVE); LEUKOCYTE ESTERASE ,URINE MODERATE (NEGATIVE); NITRATE,URINE NEGATIVE (NEGATIVE); OCCULT BLOOD,URINE NEGATIVE (NEGATIVE); PROTEIN,URINE NEGATIVE (NEGATIVE); SPECIFIC GRAVITIY, URINE 1.019 (1.003-1.030); UROBILINOGEN,URINE <=1.0 mg/dL (<=1.0)
[2024-05-09 15:13] LABS: AMPHET/METH SCREEN,URINE NEGATIVE (NEGATIVE); BARBITURATE SCREEN, URINE NEGATIVE (NEGATIVE); BENZODIAZEPINES SCREEN,URINE NEGATIVE (NEGATIVE); CANNABINOID SCREEN,URINE NEGATIVE (NEGATIVE); COCAINE SCREEN,URINE NEGATIVE (NEGATIVE); METHADONE SCREEN, URINE NEGATIVE (NEGATIVE); OPIATE SCREEN,URINE NEGATIVE (NEGATIVE); PHENCYCLIDINE SCREEN,URINE NEGATIVE (NEGATIVE)
[2024-05-09 15:14] LABS: ALCOHOL, URINE DRUG SCREEN NEGATIVE (NEGATIVE)
[2024-05-09] MEDS ORDERED: DiphenhydrAMINE HCL 50 MG/ML VIAL ONE (15:21)
[2024-05-09] MEDS ORDERED: LORazepam 2 MG/ML VIAL ONE (15:21)
[2024-05-09] MEDS ORDERED: HALOPERIDOL LACTATE 5 MG/ML VIAL ONE (15:21)
[2024-05-09 15:31] LABS: RBC,URINE 0-2 /HPF (0-2)
[2024-05-09 15:32] LABS: BACTERIA,URINE Few /HPF (None Seen); SQUAMOUS EPITHELIAL CELL,UR Few /LPF (None Seen)
[2024-05-09] MEDS: HALOPERIDOL LACTATE 5 MG/ML VIAL IM ONE (15:50)
[2024-05-09] MEDS: DiphenhydrAMINE HCL 50 MG/ML VIAL IM ONE (15:50)
[2024-05-09] MEDS: LORazepam 2 MG/ML VIAL IM ONE (16:47)
[2024-05-09] MEDS: LORazepam 2 MG/ML VIAL IVP ONE (16:47)
[2024-05-09 20:11] VITALS: O2SAT 99
[2024-05-09] MEDS ORDERED: MAG HYDROX/ALUMINUM HYD/SIMETH ES 30 ML SUSPENSION UDCUP PO PRN (20:15)
[2024-05-09] MEDS ORDERED: LOPERAMIDE HCL 2 MG CAPSULE PO PRN (20:15)
[2024-05-09] MEDS ORDERED: ALBUTEROL SULFATE HFA 90 MCG/PUFF 8 GM INHALER IH PRN (20:15)
[2024-05-09] MEDS ORDERED: GuaiFENesin/D-METHORPHAN [SUGAR-FREE] 200-20MG/10 ML SYRUP UDCUP PO PRN (20:15)
[2024-05-09] MEDS ORDERED: DOCUSATE SODIUM 100 MG CAPSULE PO PRN (20:15)
[2024-05-09] MEDS ORDERED: NICOTINE 14 MG/24 HOUR PATCH TD PRN (20:15)
[2024-05-09] MEDS ORDERED: ONDANSETRON 4 MG TABLET PO PRN (20:15)
[2024-05-09] MEDS ORDERED: PETROLATUM,WHITE 28 GM JELLY TP PRN (20:15)
[2024-05-09] MEDS ORDERED: CloNIDine HCL 0.1 MG TABLET PO PRN (20:15)
[2024-05-09] MEDS ORDERED: MAGNESIUM HYDROXIDE SUSPENSION 30 ML UDCUP PO PRN (20:15)
[2024-05-09 21:40] LABS: GLUCOMETER DEV NAME(LOC) BV2X.3; GLUCOSE,POINT OF CARE 369 MG/DL (70-110)
[2024-05-09] MEDS: INSULIN GLARGINE,HUM.REC.ANLOG 100 UNITS/ML SQ SCH (22:03)
[2024-05-09] MEDS: INSULIN LISPRO 100 UNITS/ML SQ PRN (22:03)
[2024-05-09] MEDS ORDERED: GLUCAGON,HUMAN RECOMBINANT 1 MG VIAL IM PRN (22:15)
[2024-05-09 22:51] VITALS: BP 139/85; PULSE 102; RESP 20; TEMP 96.5; O2SAT 96
[2024-05-10] MEDS: GEMFIBROZIL 600 MG TABLET PO SCH (06:19)
[2024-05-10 06:31] LABS: GLUCOMETER DEV NAME(LOC) BV2X.3; GLUCOSE,POINT OF CARE 290 MG/DL (70-110)
[2024-05-10 08:10] VITALS: BP 115/64; PULSE 96; RESP 17; TEMP 98.3; O2SAT 100
[2024-05-10] MEDS: GABAPENTIN 100 MG CAPSULE PO SCH (08:21)
[2024-05-10] MEDS: ASPIRIN 81 MG DR TABLET PO SCH (08:21)
[2024-05-10] MEDS: LOSARTAN POTASSIUM 25 MG TABLET PO SCH (08:21)
[2024-05-10 11:27] LABS: THYROID STIMULATING HORMONE 1.42 uIU/mL (0.36-3.74)
[2024-05-10 11:35] LABS: GLUCOMETER DEV NAME(LOC) BV2X.3; GLUCOSE,POINT OF CARE 358 MG/DL (70-110)
[2024-05-10] MEDS: LORazepam 2 MG TABLET PO PRN (12:47)
[2024-05-10] MEDS: LURASIDONE HCL 20 MG TABLET PO SCH (16:09)
[2024-05-10 16:35] LABS: GLUCOMETER DEV NAME(LOC) BV2X.3; GLUCOSE,POINT OF CARE 283 MG/DL (70-110)
[2024-05-10] MEDS: INFLUENZA VIRUS VACCINE TVS (6MO+) 2024-25/PF 45 MCG/0.5 ML SYRINGE IM. ONE (16:42)
[2024-05-10 20:40] LABS: GLUCOMETER DEV NAME(LOC) BV2X.3; GLUCOSE,POINT OF CARE 319 MG/DL (70-110)
[2024-05-10] MEDS: ZOLPIDEM TARTRATE 10 MG TABLET PO PRN (20:57)
[2024-05-10 21:51] VITALS: BP 106/75; PULSE 88; RESP 17; TEMP 97.1; O2SAT 98
[2024-05-11 05:15] LABS: GLUCOMETER DEV NAME(LOC) BV2X.3; GLUCOSE,POINT OF CARE 291 MG/DL (70-110)
[2024-05-11 08:23] VITALS: BP 140/88; PULSE 100; RESP 20; TEMP 98; O2SAT 100
[2024-05-11 11:50] LABS: GLUCOMETER DEV NAME(LOC) BV2X.3; GLUCOSE,POINT OF CARE 348 MG/DL (70-110)
[2024-05-11] MEDS: HALOPERIDOL 5 MG TABLET PO PRN (12:44)
[2024-05-11 13:37] VITALS: BP 124/86; PULSE 90; RESP 18; O2SAT 98
[2024-05-11 16:41] LABS: GLUCOMETER DEV NAME(LOC) BV2X.3; GLUCOSE,POINT OF CARE 272 MG/DL (70-110)
[2024-05-11] MEDS: PNEUMOCOCCAL VACCINE POLYVALENT 0.5 ML SYRINGE [PPSV23] IM. ONE (17:30)
[2024-05-11 20:19] VITALS: BP 142/87; PULSE 100; RESP 18; TEMP 97.3; O2SAT 97
[2024-05-11 20:40] LABS: GLUCOMETER DEV NAME(LOC) BV2X.3; GLUCOSE,POINT OF CARE 209 MG/DL (70-110)
[2024-05-12 06:06] LABS: GLUCOMETER DEV NAME(LOC) BV2X.3; GLUCOSE,POINT OF CARE 190 MG/DL (70-110)
[2024-05-12 08:06] VITALS: BP 119/76; PULSE 98; RESP 17; TEMP 98.9; O2SAT 96
[2024-05-12 09:10] VITALS: RESP 18; O2SAT 97
[2024-05-12] MEDS: ACETAMINOPHEN 325 MG TABLET PO PRN (09:10)
[2024-05-12 10:06] LABS: ANION GAP 10 mmol/L (8-16); CALCIUM, TOTAL 9.3 mg/dL (8.8-10.5); CARBON DIOXIDE 24 mmol/L (22-29); CHLORIDE 98 mmol/L (98-107); GLUCOSE,RANDOM 204 mg/dL (70-110); HDL CHOLESTEROL 45 mg/dL (40-60); POTASSIUM 4.5 mmol/L (3.5-5.1); SODIUM SERUM 132 mmol/L (136-145); TRIGLYCERIDES 80 mg/dL (15-150); UREA NITROGEN, BLOOD 12 mg/dL (7-18)
[2024-05-12 10:10] VITALS: RESP 17; O2SAT 97
[2024-05-12 10:30] LABS: CHOLESTEROL 136 mg/dL (131-200); CREATININE 0.61 mg/dL (0.60-1.30); GLOMERULAR FILTR. RATE CALC > 60 mL/min (>60); LDL CHOL (CALC.) 75 mg/dL (0-130)
[2024-05-12 11:50] LABS: GLUCOMETER DEV NAME(LOC) BV2X.3; GLUCOSE,POINT OF CARE 269 MG/DL (70-110)
[2024-05-12 17:05] LABS: GLUCOMETER DEV NAME(LOC) BV2X.3; GLUCOSE,POINT OF CARE 327 MG/DL (70-110)
[2024-05-12 20:07] VITALS: BP 138/76; PULSE 101; RESP 18; TEMP 97.8; O2SAT 99
[2024-05-12] MEDS: INSULIN GLARGINE,HUM.REC.ANLOG 100 UNITS/ML SQ SCH (21:43)
[2024-05-12 22:05] LABS: GLUCOMETER DEV NAME(LOC) BV2X.3; GLUCOSE,POINT OF CARE 368 MG/DL (70-110)
[2024-05-13 04:10] VITALS: BP 135/87; PULSE 98; RESP 17; TEMP 98; O2SAT 98
[2024-05-13 06:21] LABS: GLUCOMETER DEV NAME(LOC) BV2X.3; GLUCOSE,POINT OF CARE 291 MG/DL (70-110)
[2024-05-13 08:06] VITALS: BP 125/84; PULSE 99; RESP 18; TEMP 97.2; O2SAT 96
[2024-05-13] MEDS: BACITRACIN 28 GM OINTMENT TP SCH (08:08)
[2024-05-13] MEDS: RisperiDONE 2 MG TABLET PO SCH (11:43)
[2024-05-13 12:35] LABS: GLUCOMETER DEV NAME(LOC) BV2X.3; GLUCOSE,POINT OF CARE 305 MG/DL (70-110)
[2024-05-13 16:41] LABS: GLUCOMETER DEV NAME(LOC) BV2X.3; GLUCOSE,POINT OF CARE 422 MG/DL (70-110)
[2024-05-13] MEDS: INSULIN LISPRO 100 UNITS/ML SQ ONE (16:55)
[2024-05-13] MEDS: INSULIN GLARGINE,HUM.REC.ANLOG 100 UNITS/ML SQ SCH (16:56)
[2024-05-13 20:30] LABS: GLUCOMETER DEV NAME(LOC) BV2X.3; GLUCOSE,POINT OF CARE 307 MG/DL (70-110)
[2024-05-13 23:18] VITALS: BP 128/78; PULSE 96; RESP 16; TEMP 98.2; O2SAT 98
[2024-05-14 06:41] LABS: GLUCOMETER DEV NAME(LOC) BV2X.3; GLUCOSE,POINT OF CARE 327 MG/DL (70-110)
[2024-05-14 08:10] VITALS: BP 136/79; PULSE 99; RESP 17; TEMP 98.1; O2SAT 96
[2024-05-14] MEDS ORDERED: GLUCAGON,HUMAN RECOMBINANT 1 MG VIAL IM PRN (16:45)
[2024-05-14] MEDS: INSULIN LISPRO 100 UNITS/ML SQ PRN (16:46)
[2024-05-14 18:16] LABS: GLUCOMETER DEV NAME(LOC) BV2X.3; GLUCOSE,POINT OF CARE 372 MG/DL (70-110)
[2024-05-14 18:17] LABS: GLUCOMETER DEV NAME(LOC) BV2X.3; GLUCOSE,POINT OF CARE 523 MG/DL (70-110)
[2024-05-14 20:22] VITALS: BP 136/79; PULSE 99; RESP 18; TEMP 98.1; O2SAT 96
[2024-05-14 20:46] LABS: GLUCOMETER DEV NAME(LOC) BV2X.3; GLUCOSE,POINT OF CARE 382 MG/DL (70-110)
[2024-05-15 06:11] LABS: GLUCOMETER DEV NAME(LOC) BV2X.3; GLUCOSE,POINT OF CARE 326 MG/DL (70-110)
[2024-05-15 08:31] VITALS: BP 128/80; PULSE 80; RESP 18; TEMP 97.9; O2SAT 96
[2024-05-15] MEDS: INSULIN GLARGINE,HUM.REC.ANLOG 100 UNITS/ML SQ SCH (08:39)
[2024-05-15 16:42] LABS: GLUCOMETER DEV NAME(LOC) BV2X.3; GLUCOSE,POINT OF CARE 425 MG/DL (70-110)
[2024-05-15 20:31] LABS: GLUCOMETER DEV NAME(LOC) BV2X.3; GLUCOSE,POINT OF CARE 368 MG/DL (70-110)
[2024-05-15] MEDS: IBUPROFEN 400 MG TABLET PO PRN (23:00)
[2024-05-16 00:23] VITALS: BP 147/90; PULSE 99; RESP 18; TEMP 98.3; O2SAT 97
[2024-05-16 06:46] LABS: GLUCOMETER DEV NAME(LOC) BV2X.3; GLUCOSE,POINT OF CARE 238 MG/DL (70-110)
[2024-05-16] MEDS ORDERED: LURA20TA PO (08:20)
[2024-05-16] MEDS ORDERED: INSLAN SQ (08:21)
[2024-05-16 09:34] VITALS: BP 119/90; PULSE 110; RESP 18; TEMP 97.9; O2SAT 100
[2024-05-16 11:45] LABS: GLUCOMETER DEV NAME(LOC) BV2X.3; GLUCOSE,POINT OF CARE 378 MG/DL (70-110)
[2024-05-16 18:50] LABS: GLUCOMETER DEV NAME(LOC) BV2X.3; GLUCOSE,POINT OF CARE 465 MG/DL (70-110)
== END 2024-05-16 17:33 | DRG 885 ==
LOC: EMS 11:45 → B2X 16:34
PROVIDERS: ADMIT Psychiatry & Neurology Child & Adolescent Psychiatry; ATTEND Psychiatry & Neurology Child & Adolescent Psychiatry
PROC: GZ56ZZZ Individual Psychotherapy, Supportive (ICD-10-PCS; principal; 2024-05-10)
PROC: GZ52ZZZ Individual Psychotherapy, Cognitive (ICD-10-PCS; 2024-05-10)
DX: F25.0 Schizoaffective disorder, bipolar type (principal); E87.1 Hypo-osmolality and hyponatremia; E11.9 Type 2 diabetes mellitus without complications; I10 Essential (primary) hypertension; K21.9 Gastro-esophageal reflux disease without esophagitis; E11.40 Type 2 diabetes mellitus with diabetic neuropathy, unspecified; Z20.822 Contact with and (suspected) exposure to COVID-19; G89.4 Chronic pain syndrome; N40.0 Benign prostatic hyperplasia without lower urinary tract symptoms; R56.9 Unspecified convulsions; Z79.4 Long term (current) use of insulin; Z86.73 Personal history of transient ischemic attack (TIA), and cerebral infarction without residual deficits; Z88.0 Allergy status to penicillin; E78.00 Pure hypercholesterolemia, unspecified; M19.90 Unspecified osteoarthritis, unspecified site
CPT/HCPCS: 80048; 80061; 80307; 81001; 82962; 83036; 84443; 85025; 87081; 87086; 87481; 90686; 90732; 99285; G0480; J1200; J1630; J1815; J2060